=== PATIENT | female | born 1975 | race Caucasian/White ===

== ENCOUNTER 2023-07-20 06:58 | Outpatient (REF) | payer MEDICAID, SELFPAY ==
--- NOTE | ~2023-07-20 | XR_ITS ---
EXAMINATION: XR KNEE, LEFT CLINICAL INFORMATION: Pain in left knee. COMPARISON: None available. TECHNIQUE: AP standing view of bilateral knees as well as lateral and sunrise views of the left knee. FINDINGS: The bones are diffusely demineralized. AP Standing View of the Right Knee: Moderate degenerative changes in the medial compartment of the right knee with medial joint space narrowing and medial marginal osteophytes. Left Knee: Small tricompartmental osteophytes. Moderate joint effusion. Moderate narrowing of the medial compartment. Asymmetric lateral narrowing of the patellofemoral compartment. Corticated ossicles along the superolateral aspect of the patellofemoral joint. XR/XR knee LT 3V IMPRESSION: Moderate degenerative changes bilateral knees.
== END 2023-07-20 06:59 | disposition home or self-care (01) ==
LOC: HO.HOSX 06:58
PROVIDERS: Visit Provider Physician Assistant
DX: M17.12 Unilateral primary osteoarthritis, left knee (principal); G89.29 Other chronic pain
CPT/HCPCS: 20610; 73562; 99212; J1010

== ENCOUNTER 2023-07-20 12:42 | Outpatient (AMB) | payer MEDICAID, SELFPAY ==
--- NOTE | 2023-07-20 13:09 | A.OFFVIS_ITS ---
Intake Visit Reasons: N/P Left knee s/p falling on 03/24/23 Intake Note: Yomaira a 47 year old female who presents today as a new patient for an evaluation of left knee pain s/p fall on 03/24/23. Patient reports bilateral knee pain after sustaining a fall, states her left knee being the worse. Intermittent swelling at the medial aspect of knee. Her pain radiates from her knee to her lower back as well as numbness in her knee. She has tried and failed PT. Finds no relief with Tylenol or topical cream. Allergies No Known Allergies Allergy (Verified 07/20/23 13:13) Medication List - Last Reconciled 07/20/23 by BRIDGETT Diamond diclofenac sodium 1% 2 grams topical BID losartan 50 mg PO DAILY HPI HPI N/P Left knee s/p falling on 03/24/23: Details: 47-year-old female who presents to the office today for an evaluation of left knee injury s/p fall, 03/24/23. She states she has bilateral knee pain that is worse on her left knee. Her pain radiates from her knee to the lower back. She also reports intermittent swelling at the medial aspect of her knee as well as numbness and tingling. She has tried physical therapy without benefits. She finds no relief with Tylenol or topical cream. She does not have a history of diabetes. 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 Review of Systems Const All systems reviewed & are unremarkable except as noted in HPI and below Physical Exam Const Other: Patient is alert, oriented, cooperative, and in no acute distress General: cooperative, healthy appearing, comfortable, no acute distress, well developed and alert Orientation/consciousness: patient oriented x3 HEENT Head: Yes normal to inspection, Yes normocephalic and Yes atraumatic Eyes General: appearance normal, both eyes and all related structures Resp Effort & Inspection: normal respiratory effort and able to speak in complete sentences Cardio Jugular venous distension: no JVD Rate: regular rate Peripheral pulses: Peripheral pulses 2+ throughout GI Palpation (GI): Soft to palpation Skin Lesions: no lesions Rashes: no rashes Neuro General: patient oriented x3 Cognition (Neuro): normal cognition Extrem Other: Patient's left knee normal to inspection. No erythema, ecchymosis, or superficial wounds noted. Hypersensitivity to palpation of the anterior, posterior, and medial knee. Patient reports less tenderness to palpation of the lateral knee. Pain with active and passive range of motion. Medial and lateral joint line tenderness noted. NVI. Psych Appearance: grossly normal Mental Status: mental status grossly normal Office Procedures Joint Injection/Drain Joint Injection/Drain Primary Site: left knee Prep: site was prepped using aseptic technique, ethochloride spray was applied and injection warnings given Injected: 80 mg of, DepoMedrol, with 8 mL of and 1% plain lidocaine Approach Used: anterolateral Procedure: The patient tolerated the procedure well and there was some relief with the local anesthesia Coding 58632 - Large joint Procedure code (CPT) selection complete Results Reviewed Results Reviewed: X-rays obtained in the office today and independently reviewed by me, David Moya PA-C, demonstrate mild to moderate patellofemoral arthritis in the left knee, significant lateralization of the patella, mild medial joint space narrowing in the left knee, and osteophyte formation. Assessment & Plan Assessment & Plan (1) Left knee pain: Code(s): M25.562 - Pain in left knee Category: Medical Qualifiers: Chronicity: chronic Qualified Code(s): M25.562 - Pain in left knee; G89.29 - Other chronic pain (2) Patellofemoral arthritis of left knee: Code(s): M17.12 - Unilateral primary osteoarthritis, left knee Category: Medical Plan Patient was given an injection with 80 mg of Depo-Medrol and 8 mL of 1% lidocaine in her left knee. Patient was also advised to continue with physical therapy to improve function in her left knee. Patient expresses interest in having an MRI taken of her left knee to assess for any further derangement. MRI ordered and the patient will be called to schedule this. Patient will follow-up with us in office once MRI has been obtained to review results. In the meantime, patient can follow up in the office PRN. Orders: Orders XR knee LT 3V Today M25.562 - Pain in left knee MR knee LT wo con Today M17.12 - Unilateral primary osteoarthritis, left knee Coding Level of Care Code New Pt Level 3 (15535) Diagnoses Chronic pain of left knee M25.562; G89.29 Chronicity: chronic Patellofemoral arthritis of left knee M17.12 CPT Codes Coding - 79293 Large joint: 80177 - Large joint ([id number]) Time Spent (min) 38
== END 2023-07-20 14:39 | disposition home or self-care (01) ==
PROVIDERS: Visit Provider Physician Assistant
DX: M25.562 Pain in left knee (principal); G89.29 Other chronic pain; M17.12 Unilateral primary osteoarthritis, left knee
CPT/HCPCS: 20610; 99203

== ENCOUNTER 2023-09-12 19:14 | Outpatient (REF) | payer MEDICAID, SELFPAY ==
--- NOTE | ~2023-09-12 | MR_ITS ---
EXAMINATION: MR KNEE WITHOUT CONTRAST, LEFT CLINICAL INFORMATION: Left knee pain. Unilateral primary osteoarthritis. COMPARISON: Radiographs dated 07/20/2023. TECHNIQUE: MRI of the knee without contrast was performed using routine sequences on a high-field scanner. FINDINGS: MENISCI: Medial Meniscus: There is a small horizontal inner margin tear of the posterior horn, involving the inner third of the meniscal cross-section. No additional tears. No meniscal extrusion. Lateral Meniscus: Intact. LIGAMENTS: Cruciate: Intact. Collateral: Intact. EXTENSOR MECHANISM: Intact. ARTICULAR CARTILAGE/BONE: Patellofemoral Compartment: Diffuse full-thickness articular cartilage loss is evident at the lateral patellar facet extending onto the median ridge with associated articular cortical remodeling, sclerosis, and marginal osteophytes. Similar full-thickness cartilage loss and cortical remodeling are noted at the lateral trochlear facet. More wlkf-zl-qgiqhmah chondral thinning and surface irregularity at the medial facets. A chronic ossific fragment is present at the lateral margin of the patella, likely a fragmented osteophyte. Medial Compartment: Qort-xb-znnveuvb nonuniform chondral thinning at the medial femoral condyle and medial tibial plateau with associated marginal osteophytes. Lateral Compartment: There is mild nonuniform chondral thinning at the lateral tibial plateau with moderate-sized marginal osteophytes. JOINT FLUID AND BURSAE: Moderate-sized joint effusion. Small Sosa's cysts. No loose bodies. MR/MR knee LT wo con IMPRESSION: 1. Small horizontal inner margin tear at the posterior horn of the medial meniscus. 2. Severe patellofemoral compartment osteoarthritis more pronounced at the lateral facets. More zvvo-sf-dlkegdon medial and lateral compartment osteoarthritis. 3. Moderate-sized joint effusion and a small Sosa's cyst.
== END 2023-09-12 19:15 | disposition home or self-care (01) ==
LOC: HO.MRI 19:14
PROVIDERS: Visit Provider Physician Assistant
DX: M17.12 Unilateral primary osteoarthritis, left knee (principal)
CPT/HCPCS: 73721

== ENCOUNTER 2023-10-14 15:13 | Outpatient (AMB) | payer MEDICAID, SELFPAY ==
--- NOTE | 2023-10-14 15:18 | MHC.OFFVIS ---
Intake Visit Reasons: OV- MRI review Left knee Intake Note: Yomaira is a 48 year old female who presents today to discuss her MRI results of her left knee. Patient reports her pain has gradually increased. PT did not help her w/ relief, they are saying she need surgery. Prologned ambulation, sitting and standing causing extreme pain. Her injection on 07/20/23 did not give relief. 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 Topical gel does not give relief. She says she is unable to take ibuprofen. Clearance Representative Required: Yes Clearance Representative Language: Body Man Services: Clearance Representative Present Clearance Representative Name: ALEX Alcala/NARAYAN Allergies ibuprofen Allergy (Severe, Verified 10/14/23 16:07) trouble breathing HPI HPI OV- MRI review Left knee: Details: 48-year-old female who returns to the office today with an opto mechanical technician for an MRI review left knee. She reports she has worsening pain in her knee that is aggravated with prolonged ambulation, sitting and standing. She had attended physical therapy which did not provide her any relief. She had her last injection on 07/19/22 which did not provide her any relief. She finds no relief with topical gel. She is unable to take ibuprofen. 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 Review of Systems Const All systems reviewed & are unremarkable except as noted in HPI and below Physical Exam Const Other: Patient is alert, oriented, cooperative, and in no acute distress General: cooperative, healthy appearing, comfortable, no acute distress, well developed and alert Orientation/consciousness: patient oriented x3 HEENT Head: Yes normal to inspection, Yes normocephalic and Yes atraumatic Eyes General: appearance normal, both eyes and all related structures Resp Effort & Inspection: normal respiratory effort and able to speak in complete sentences Cardio Jugular venous distension: no JVD Rate: regular rate Peripheral pulses: Peripheral pulses 2+ throughout GI Palpation (GI): Soft to palpation Skin Lesions: no lesions Rashes: no rashes Neuro General: patient oriented x3 Cognition (Neuro): normal cognition Extrem Other: Patient's left knee normal to inspection. No erythema, ecchymosis, or superficial wounds noted. Hypersensitivity to palpation of the anterior, posterior, and medial knee. Patient reports less tenderness to palpation of the lateral knee. Pain with active and passive range of motion. Medial and lateral joint line tenderness noted. NVI. Psych Appearance: grossly normal Mental Status: mental status grossly normal Results Reviewed Results Reviewed: MR knee LT wo con IMPRESSION: 1. Small horizontal inner margin tear at the posterior horn of the medial meniscus. 2. Severe patellofemoral compartment osteoarthritis more pronounced at the lateral facets. More dorm-me-hzootrgl medial and lateral compartment osteoarthritis. 3. Moderate-sized joint effusion and a small Sosa's cyst. Assessment & Plan Assessment & Plan (1) Patellofemoral arthritis of left knee: Code(s): M17.12 - Unilateral primary osteoarthritis, left knee Category: Medical Plan A referral to pain management has been submitted to discuss geniculate injection. We will also get a prior approval for gel injection and will see her back once approved. Orders: Referrals Pain Management Referral M17.12 - Unilateral primary osteoarthritis, left knee Medications: New celecoxib (Celebrex) 200 mg PO BID 60 caps 3RF 30 days Patient Instructions: Scribed for Usman Nichols PA-C, by Cyrus Kirk outside medical sales representative, on 10/14/2023 at 3:15 PM EST.? I, Usman Nichols PA-C, have personally reviewed and agree with the information entered by the scribe. Coding Level of Care Code Est Pt Level 3 (97617) Complex EM visit Add On G2211 Diagnoses Patellofemoral arthritis of left knee M17.12
== END 2023-10-14 16:07 | disposition home or self-care (01) ==
PROVIDERS: Visit Provider Physician Assistant
DX: M17.12 Unilateral primary osteoarthritis, left knee (principal)
CPT/HCPCS: 99213

== ENCOUNTER → 2023-10-14 15:13 | Outpatient (BNVA) | payer MEDICAID, SELFPAY | PROVIDERS: Visit Provider Physician Assistant | DX: M17.12 Unilateral primary osteoarthritis, left knee (principal) | CPT/HCPCS: 99212 ==

== ENCOUNTER 2023-12-15 10:58 | Outpatient (AMB) | payer MEDICAID, SELFPAY ==
[2023-12-15 11:17] VITALS: BP 157/90; PULSE 76; O2SAT 98
--- NOTE | 2023-12-15 11:17 | A.OFFVIS_ITS ---
Vital Signs 12/15/23 11:17 Weight 200 lb BP 157/90 H Blood Pressure Location Lt brachial Position Sitting Pulse 76 Pulse Source Pulse Oximeter Pulse Oximetry (%) 98 Oxygen Delivery Method Room Air Intake Visit Reasons: Unilateral primary osteoarthritis, left knee Allergies ibuprofen Allergy (Severe, Verified 12/15/23 11:18) trouble breathing Medication List - Last Reconciled 12/15/23 by Evette Salgado celecoxib (Celebrex) 200 mg PO BID 30 days losartan 50 mg PO DAILY HPI Comments Details: Yomaira is a very pleasant 40-year-old female who presents to the office today for evaluation and management of her chronic left knee pain Visit completed with water resource project manager Sonny #[id number] Pain started 03/29/2023 after she fell at the grocery store. States she landed on her left knee. Has been under the care of Orthopedics, x-ray and MRI performed, results as per below. Has received steroid knee injections without improvement of her symptoms Taking Celebrex with no improvement. Using bgdv-fnm-lvudjnd Tylenol at home. Completed physical therapy less than 6 months ago but pain persists. States there was no improvement with physical therapy or with the continued home exercise program. Endorses decreased range of motion, pain with standing and walking. States significantly tender to palpation Pain today is rated as a 10/10, constant. 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 Answers questions appropriately. Fully engaged in examination. Skin: warm, dry, intact HEENT: Normocephalic. Hearing intact. Cardiac: External chest normal in appearance. Respiratory: No cough, audible wheezing or stridor. Abdomen: without gross distension. MS: No obvious swelling or deformities. Left knee: Diffusely tender. Decreased range of motion. Patient is weight- bearing and ambulates with steady gait unassisted. Neurological: Oriented to person, place, time and situation. Thought process intact. No gait abnormalities appreciated. Psychiatric: Appropriate mood and affect. Good judgment and insight. Results Reviewed Results Reviewed: 09/12/2023 MR/MR knee LT wo con FINDINGS: MENISCI: Medial Meniscus: There is a small horizontal inner margin tear of the posterior horn, involving the inner third of the meniscal cross-section. No additional tears. No meniscal extrusion. Lateral Meniscus: Intact. LIGAMENTS: Cruciate: Intact. Collateral: Intact. EXTENSOR MECHANISM: Intact. ARTICULAR CARTILAGE/BONE: Patellofemoral Compartment: Diffuse full-thickness articular cartilage loss is evident at the lateral patellar facet extending onto the median ridge with associated articular cortical remodeling, sclerosis, and marginal osteophytes. Similar full-thickness cartilage loss and cortical remodeling are noted at the lateral trochlear facet. More pjzd-mx-gqysmlcj chondral thinning and surface irregularity at the medial facets. A chronic ossific fragment is present at the lateral margin of the patella, likely a fragmented osteophyte. Medial Compartment: Hkjp-dr-xzivuhgd nonuniform chondral thinning at the medial femoral condyle and medial tibial plateau with associated marginal osteophytes. Lateral Compartment: There is mild nonuniform chondral thinning at the lateral tibial plateau with moderate-sized marginal osteophytes. JOINT FLUID AND BURSAE: Moderate-sized joint effusion. Small Sosa's cysts. No loose bodies. IMPRESSION: 1. Small horizontal inner margin tear at the posterior horn of the medial meniscus. 2. Severe patellofemoral compartment osteoarthritis more pronounced at the lateral facets. More dplb-hp-ctphbpmc medial and lateral compartment osteoarthritis. 3. Moderate-sized joint effusion and a small Sosa's cyst. 07/20/23 XR/XR knee LT 3V FINDINGS: The bones are diffusely demineralized. AP Standing View of the Right Knee: Moderate degenerative changes in the medial compartment of the right knee with medial joint space narrowing and medial marginal osteophytes. Left Knee: Small tricompartmental osteophytes. Moderate joint effusion. Moderate narrowing of the medial compartment. Asymmetric lateral narrowing of the patellofemoral compartment. Corticated ossicles along the superolateral aspect of the patellofemoral joint. IMPRESSION: Moderate degenerative changes bilateral knees. Assessment & Plan Assessment & Plan (1) Patellofemoral arthritis of left knee: Code(s): M17.12 - Unilateral primary osteoarthritis, left knee Category: Medical (2) Left knee pain: Code(s): M25.562 - Pain in left knee Category: Medical Qualifiers: Chronicity: chronic Qualified Code(s): M25.562 - Pain in left knee; G89.29 - Other chronic pain Plan Yomaira is a very pleasant 40-year-old female who presented to the office today for evaluation and management of her chronic left knee pain Patient has exhausted conservative therapy including PT, home exercise program, nonsteroidal anti-inflammatory medications, pvog-dwn-uklsiux medications and steroid injections all without improvement of her symptoms Continue with plan for Euflexxa injections with Orthopedics. Discussed options for treatment including diagnostic interventional testing, steroid injections, peripheral nerve stimulation with Sprint, RFA and more permanent neuromodulation. Informational pamphlets provided. Patient will follow-up after gentle injections, if no improvement will plan for fluoroscopy guided left saphenous nerve sprint PNS trial with local anesthetic. All questions and concerns have been answered and patient agrees with the plan. Follow up after injections and sooner if needed. Medications: New gabapentin 100 mg PO TID 90 caps 3RF Coding Level of Care Code New Pt Level 4 (77627) Complex EM visit Add On G2211 Diagnoses Patellofemoral arthritis of left knee M17.12 Chronic pain of left knee M25.562; G89.29 Chronicity: chronic
== END 2023-12-15 11:43 | disposition home or self-care (01) ==
LOC: HO.PMC 10:59
PROVIDERS: Visit Provider Registered Nurse Emergency
DX: M17.12 Unilateral primary osteoarthritis, left knee (principal); M25.562 Pain in left knee; G89.29 Other chronic pain
CPT/HCPCS: 99204

== ENCOUNTER → 2023-12-15 10:58 | Outpatient (BNVA) | payer MEDICAID, SELFPAY | PROVIDERS: Visit Provider Registered Nurse Emergency | DX: M17.12 Unilateral primary osteoarthritis, left knee (principal); M25.562 Pain in left knee; G89.29 Other chronic pain | CPT/HCPCS: 99212 ==

== ENCOUNTER 2023-12-23 10:41 | Outpatient (AMB) | payer MEDICAID, SELFPAY ==
--- NOTE | 2023-12-23 10:45 | A.OFFVIS_ITS ---
Intake Visit Reasons: INJ- LT knee Euflexxa #1 Intake Note: Yomaira a 48 year old female who presents today for a left knee Euflexxa injection #1. Allergies ibuprofen Allergy (Severe, Verified 12/23/23 10:53) trouble breathing HPI HPI INJ- LT knee Euflexxa #1: Details: 48-year-old female who returns to the office today for a left knee Euflexxa gel injection #1. 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 Tenderness along the medial and lateral joint line. Full ROM with crepitus. Negative Mirela?s. No ligamentous laxity. NVI. Office Procedures AMB Joint Injection/Aspiration Joint Injection/Aspiration Primary Site: left knee Prep: site was prepped using aseptic technique, ethochloride spray was applied and injection warnings given Injected: in the joint Approach Used: anterolateral Procedure: The patient tolerated the procedure well and there was some relief with the local anesthesia Coding 30617 - Glenohumeral/Tronchanteric Bursa/Intraarticular Procedure code (CPT) selection complete Assessment & Plan Assessment & Plan (1) Patellofemoral arthritis of left knee: Code(s): M17.12 - Unilateral primary osteoarthritis, left knee Category: Medical Plan We discussed options today, which include Euflexxa gel injection. The patient did consent to move forward with the left knee Euflexxa gel injection #1, which was tolerated well. I recommended rest, ice, and elevation and OTC anti- inflammatories as needed for discomfort. she will return in 1 week for Euflexxa gel injection #2. Patient Instructions: Scribed for Usman Nichols PA-C, by Cyrus Kirk medical technologist clinical, on 12/23/2023 at 11:15 AM EST.? I, Usman Nichols PA-C, have personally reviewed and agree with the information entered by the scribe. Coding Level of Care Code Procedure Only Diagnoses Patellofemoral arthritis of left knee M17.12 CPT Codes Coding - Joint 7: 68333 - Glenohumeral/Tronchanteric Bursa/Intraarticular ([id number])
== END 2023-12-23 11:07 | disposition home or self-care (01) ==
PROVIDERS: Visit Provider Physician Assistant
DX: M17.12 Unilateral primary osteoarthritis, left knee (principal)
CPT/HCPCS: 20610

== ENCOUNTER → 2023-12-23 10:41 | Outpatient (BNVA) | payer MEDICAID, SELFPAY | PROVIDERS: Visit Provider Physician Assistant | DX: M17.12 Unilateral primary osteoarthritis, left knee (principal) | CPT/HCPCS: 20610; J7323 ==

== ENCOUNTER 2024-01-09 10:38 | Outpatient (AMB) | payer MEDICAID, SELFPAY ==
--- NOTE | 2024-01-09 11:47 | A.OFFVIS_ITS ---
Intake Visit Reasons: INJ- LT knee Euflexxa #2 Intake Note: Yomaira a 48 year old female who presents today for a LT knee Euflexxa injection #2. 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
--- NOTE | 2024-01-09 11:47 | MHC.OFFVIS ---
Intake Visit Reasons: INJ- LT knee Euflexxa #2 Allergies ibuprofen Allergy (Severe, Verified 01/09/24 11:48) trouble breathing HPI HPI INJ- LT knee Euflexxa #2: Details: 48-year-old female who returns to the office today for a left knee Euflexxa gel injection #2. 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 Tenderness along the medial and lateral joint line. Full ROM with crepitus. Negative Mirela?s. No ligamentous laxity. NVI. Office Procedures AMB Joint Injection/Aspiration Joint Injection/Aspiration Details: #2 euflexxa Primary Site: left knee Prep: site was prepped using aseptic technique, ethochloride spray was applied and injection warnings given Injected: in the joint Approach Used: anterolateral Procedure: The patient tolerated the procedure well and there was some relief with the local anesthesia Coding 82200 - Glenohumeral/Tronchanteric Bursa/Intraarticular Procedure code (CPT) selection complete Assessment & Plan Assessment & Plan (1) Patellofemoral arthritis of left knee: Code(s): M17.12 - Unilateral primary osteoarthritis, left knee Category: Medical Plan We discussed options today, which include Euflexxa gel injection. The patient did consent to move forward with the left knee Euflexxa gel injection #2, which was tolerated well. I recommended rest, ice, and elevation and OTC anti-inflammatories as needed for discomfort. If symptoms persist or worsens over the next 6-8 weeks, patient will contact the office, otherwise she will follow-up in 1 week for Euflexxa gel injection #3. Patient Instructions: Scribed for Usman Nichols PA-C, by Cyrus Kirk biomedical photographer, on 01/09/2024 at 11:30 AM EST.? I, Usman Nichols PA-C, have personally reviewed and agree with the information entered by the scribe. Coding Level of Care Code Procedure Only Diagnoses Patellofemoral arthritis of left knee M17.12 CPT Codes Coding - Joint 7: 99722 - Glenohumeral/Tronchanteric Bursa/Intraarticular ([id number])
== END 2024-01-09 11:48 | disposition home or self-care (01) ==
PROVIDERS: Visit Provider Physician Assistant
DX: M17.12 Unilateral primary osteoarthritis, left knee (principal)
CPT/HCPCS: 20610

== ENCOUNTER → 2024-01-09 10:38 | Outpatient (BNVA) | payer MEDICAID, SELFPAY | PROVIDERS: Visit Provider Physician Assistant | DX: M17.12 Unilateral primary osteoarthritis, left knee (principal) | CPT/HCPCS: 20610; J7323 ==

== ENCOUNTER 2024-01-16 12:49 | Outpatient (AMB) | payer MEDICAID, SELFPAY ==
--- NOTE | 2024-01-16 12:56 | MHC.OFFVIS ---
Vital Signs 01/16/24 12:56 01/16/24 13:09 Weight 200 lb 200 lb Intake Visit Reasons: INJ- LT knee Euflexxa #3 Intake Note: Yomaira 48-year-old female who returns to the office today for a left knee Euflexxa gel injection #3. Patient states she is noticing pain improvement since she starting euflexxa. Reports she is feeling very nervous and is requesting someone to hold her hand. Allergies ibuprofen Allergy (Severe, Verified 01/16/24 13:09) trouble breathing Medication List - Last Reconciled 01/16/24 by Usman Nichols PA-C celecoxib (Celebrex) 200 mg PO BID 30 days gabapentin 100 mg PO TID losartan 50 mg PO DAILY HPI HPI INJ- LT knee Euflexxa #3: Details: 48-year-old female who returns to the office today for a left knee Euflexxa gel injection #3. [facility] Social History Patient Tobacco Use Status: Never used Tobacco Current occupational status: employed Current occupation: [employer] Review of Systems Const All systems reviewed & are unremarkable except as noted in HPI and below Physical Exam Extrem Other: Left knee: Skin intact, no erythema or joint effusion. Tenderness along the medial and lateral joint line. Full ROM with crepitus. Negative Mirela?s. No ligamentous laxity. NVI. Office Procedures AMB Joint Injection/Aspiration Joint Injection/Aspiration Details: #3 euflexxa knee Primary Site: left knee Prep: site was prepped using aseptic technique, ethochloride spray was applied and injection warnings given Injected: in the joint Approach Used: anterolateral Procedure: The patient tolerated the procedure well Coding 83097 - Glenohumeral/Tronchanteric Bursa/Intraarticular Procedure code (CPT) selection complete Assessment & Plan Assessment & Plan (1) Patellofemoral arthritis of left knee: Code(s): M17.12 - Unilateral primary osteoarthritis, left knee Category: Medical Plan We discussed options today, which include Euflexxa gel injection. The patient did consent to move forward with the left knee Euflexxa gel injection #3injection, which was tolerated well. I recommended rest, ice, and elevation and OTC anti-inflammatories as needed for discomfort. If symptoms persist or worsens over the next 6-8 weeks, patient will contact the office, otherwise follow-up as needed. Patient Instructions: Scribed for Usman Nichols PA-C, by Cyrus Kirk medical scientific officer, on 01/16/2024 at 1:15 PM EST.? I, Usman Nichols PA-C, have personally reviewed and agree with the information entered by the scribe. Coding Level of Care Code Procedure Only Diagnoses Patellofemoral arthritis of left knee M17.12 CPT Codes Coding - Joint 7: 64936 - Glenohumeral/Tronchanteric Bursa/Intraarticular ([id number])
== END 2024-01-16 13:29 | disposition home or self-care (01) ==
PROVIDERS: Visit Provider Physician Assistant
DX: M17.12 Unilateral primary osteoarthritis, left knee (principal)
CPT/HCPCS: 20610

== ENCOUNTER → 2024-01-16 12:49 | Outpatient (BNVA) | payer MEDICAID, SELFPAY | PROVIDERS: Visit Provider Physician Assistant | DX: M17.12 Unilateral primary osteoarthritis, left knee (principal) | CPT/HCPCS: 20610; J7323 ==

== ENCOUNTER 2024-06-18 13:33 | Outpatient (AMB) | payer MEDICAID, SELFPAY ==
--- NOTE | 2024-06-18 13:48 | A.OFFVIS_ITS ---
Intake Visit Reasons: OV - Left knee OA, last inj 01/16/24 Intake Note: Yomaira is a 48 year old female who presents today for a follow up of her left knee OA, last Euflexxa gel injection on 01/16/24. Patient reports injection did not provide her with relief, she has ongoing pain and swelling. Stating her pain is now radiating up her leg to her buttocks/lower back area. States she has a cramping sensation in her leg. Allergies ibuprofen Allergy (Severe, Verified 06/18/24 13:58) trouble breathing Medication List - Last Reconciled 06/18/24 by Usman Nichols PA-C celecoxib (Celebrex) 200 mg PO BID 30 days gabapentin 100 mg PO TID losartan 50 mg PO DAILY HPI HPI OV - Left knee OA, last inj 01/16/24: Details: 48 yo female returns to the office today s/p euflexxa injection left knee. She states the pain is still presents and the pain may be worse as it radiates to the buttock region she also c/o tingling which is new since her last appt. She states the tinlging is intermittent. She has seen pain mgmnt who did discuss RFA / geniculate injections . She has yet to see them back since our last appt. 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 Tenderness along the medial and lateral joint line. Full ROM with crepitus. Negative Mirela?s. No ligamentous laxity. NVI. Office Procedures AMB Joint Injection/Aspiration Joint Injection/Aspiration Primary Site: left knee Prep: site was prepped using aseptic technique, ethochloride spray was applied and injection warnings given Injected: 80 mg of, DepoMedrol, with 8 mL of, 1% plain lidocaine and in the joint Approach Used: anterolateral Procedure: The patient tolerated the procedure well and there was some relief with the local anesthesia Coding 36097 - Glenohumeral/Tronchanteric Bursa/Intraarticular Procedure code (CPT) selection complete Assessment & Plan Assessment & Plan (1) Patellofemoral arthritis of left knee: Code(s): M17.12 - Unilateral primary osteoarthritis, left knee Category: Medical Plan We discussed options today which include a repeat steroid injection of the left knee which she would like to proceed with. Patient tolerated left knee steroid injection well. As for the numbness and tingling that goes down her buttock region into the leg I am going to have her see pain management to further evaluate this but to also discuss fluoroscopy guided left saphenous nerve sprint PNS trial with local anesthetic as discussed in previous pain management appointment. Coding Level of Care Code Est Pt Level 3 (12699) Complex EM visit Add On G2211 Diagnoses Patellofemoral arthritis of left knee M17.12 CPT Codes Coding - Joint 7: 56847 - Glenohumeral/Tronchanteric Bursa/Intraarticular ([id number])
--- OUTSIDE RECORDS SUMMARY | 2024-06-18 13:52 | XMS_ITS | Clinical Summary ---
Author Organization [facility] Address [address] [place] [address] Care Team Providers Care Servicer Name Role Phone Ana Lilia Mckee PAID SEARCH MANAGER-C Primary Care Provider [phone] Source Comments PLEASE NOTE, if this patient is a minor, it may be UNLAWFUL to discuss sensitive information that is contained in these records (such as FAMILY PLANNING, MENTAL HEALTH or SUBSTANCE ABUSE) with the minor patient's parent or other person without the patient's specific authorization.[facility] Allergies Active Allergy Reactions Criticality Noted Date Comments Ibuprofen SOB High 06/08/2023 Dyspnea, no anaphylaxis per patient Lisinopril Cough 09/14/2022 Medications loratadine (CLARITIN) 10 mg tabletIndications: Seasonal allergies,Allergy, initial encounter Take 1 Tablet by mouth once daily as needed for allergies 30 Tablet 2 04/15/19 23 Active docusate sodium (COLACE) 100 mg capsuleIndications :Hemorrhoids, unspecified hemorrhoid type,Constipation, chronic Take 1 Capsule by mouth 2 (two) times daily 90 Capsule 1 06/25/19 23 Active busPIRone (BUSPAR) 10 mg tablet Take 10 mg by mouth 2 (two) times daily [id number] [place], [place] [phone] 180 Each Refills RemaininDays Supply: 90Sig: TAKE 1 TABLET BY MOUTH TWICE DAILYSource: Surescripts (Fill History, Ambulatory)Auth orized by: DARBY HOROWITZ 05/10/19 24 Active traZODone (DESYREL) 100 mg tablet Take 100 mg by mouth nightly at bedtime [id number] [place], [place] [phone] 90 Each Refills RemaininDays Supply: 90Sig: TAKE 1 TABLET BY MOUTH EVERY NIGHT AT BEDTIMESource: Surescripts (Fill History, Ambulatory)Auth orized by: DARBY HOROWITZ 05/10/19 24 Active diclofenac sodium (VOLTAREN) 1 % gelIndications:Senthil n in left tibia,Acute traumatic internal derangement of left knee, initial encounter Apply 2 g topically 2 (two) times daily 100 g 2 06/28/19 24 Active fluticasone (FLONASE) 50 mcg/actuation nasal sprayIndications:V iral infection Place 1 [place] in both nostrils once daily 16 g 1 09/28/19 24 Active ondansetron ODT (ZOFRAN-ODT) 4 mg disintegrating tabletIndications: Viral infection Take 1 Tablet by mouth every 8 (eight) hours as needed for nausea 12 Tablet 09/28/19 24 Active acetaminophen (TYLENOL) 325 mg tabletIndications: Viral infection Take 2 Tablets by mouth every 6 (six) hours as needed for pain 60 Tablet 09/28/19 24 Active celecoxib (CELEBREX) 200 mg capsule Take 200 mg by mouth 2 (two) times daily 10/14/19 24 Active nicotine polacrilex (COMMIT) 4 mg lozengeIndications :Tobacco use disorder Dissolve 1 lozenge every 1-2 hours as needed for nicotine cravings (max 10 lozenges per day) 72 Lozenge 2 10/27/19 24 Active blood pressure monitorIndications :Essential hypertension,Class 1 obesity due to excess calories with serious comorbidity and body mass index (BMI) of 32.0 to 32.9 in adult Dispense XL BP CUFF. Check BP daily as needed. Lifetime need. Dx I10.0 1 Kit 10/28/19 24 Active ciclopirox (PENLAC) 8 % solutionIndication s:Toenail fungus Apply topically nightly at bedtime 6.6 mL 11/25/19 24 Active multivitamin tabletIndications: Routine general medical examination at a health care facility Take 1 Tablet by mouth once daily Take 1 tablet by mouth daily. 30 Tablet 2 11/25/19 24 Active escitalopram oxalate (LEXAPRO) 5 mg tablet Take 5 mg by mouth every morning 11/23/19 24 Active blood [facility]Essential hypertension [facility] - [facility] - Checking BP Daily (ID: [id number]) 1 Kit 12/09/19 24 Active losartan (COZAAR) 50 mg tabletIndications: Essential hypertension Take 1 Tablet by mouth every morning 90 Tablet 1 06/07/19 25 Active losartan (COZAAR) 50 mg tabletIndications: Essential hypertension Take 1 Tablet by mouth every morning 90 Tablet 1 10/27/19 24 025 Discontin ued(Reord er (E-Cancel Not Sent)) Active Problems Problem Noted Date Diagnosed Date Class 1 obesity due to exces s calories with serious comorbidity and body mass index (BMI) of 32.0 to 32.9 in adult 06/08/2023 Food insecurity 05/03/2023 Financial difficulties 05/03/2023 Anxiety and depression 06/24/2022 Essential hypertension 06/24/2022 Sleep disturbances 10/02/2019 Vitamin D deficiency 10/02/2019 Anal fissure 04/13/2017 Overview (04/13/2017): [facility] - saw on 08/23/16. Not interested in surgery. Use Nifedipine TID RTC in 6 weeks. Hemorrhoids 04/14/2015 Overview (08/02/2016): 07/29/16 [facility] for constipation and hemorrhoids. KUB shows constipation. Treated with Lactulose 10 mg/15 mL BID PRN constipation x 3 days, Anucort-Hc rectal suppository, Colace 100 mg BID, and Tramadol 50 mg q6h PRN pain #10. Acne vulgaris 06/19/2013 Allergy 06/19/2013 Constipation, chronic 03/26/2013 Overview (02/01/2014): 05/22/13: Brandt Jo MD [facility] did colonoscopy; Entire colon NORMAL 06/08/13: GI ([facility])saw her, said nothing is wrong, enc weight loss. 07/2013: Saw Dr. Kerr EGD normal advised FODMAP diet to minimize bloating. No cause identified, thought to be functional. Cont PPI med for releif. Bx neg for pylori Tobacco use disorder 03/26/2013 Resolved Problems Problem Noted Date Diagnosed Date Resolved Date Tobacco use disorder 06/08/2023 024 Class 1 obesity 10/02/2019 06/28/2023 Visual disturbance 10/02/2019 4 Generalized pruritus 11/29/2018 023 Pelvic pain 01/18/2018 06/24/2022 Overview (01/18/2018): U/s ordered by FIRE INVESTIGATOR done on 01-17-18 showed no bulky exophytic fibroids identified. Recommend clinical correlation with surgical history and follow up. MRI of pelvis may be considered. Endometrial stripe WNL Right shoulder pain 04/14/2015 06/25/19 23 Status post hysteroscopy 09/27/2014 Overview (09/27/2014): Chloe done by Dr. De La Cruz; 09/23/14 Encounters Date Type Department Care Team Description 05/09/2024 3:00 PM EDT Office Visit [facility] [address] [place] [phone] Avery Hoffman, REBA Encounter for dental examination (Primary Dx) from Last 3 Months Immunizations Immunization Administration Dates Next Due HEP A-HEP B ([place]) 07/20/2018 PNEUMOCOCCAL CONJUGATE PCV 2 0 (Prevnar) 06/28/2023(Deferred: Patient Refused) PNEUMOCOCCAL POLYSACCHARIDE PPV23 (Pneumovax 23) 07/20/2018 PPD 11/26/2016,07/08/2015 Pfizer COVID-19 (Comirnaty), Mrna, Lnp-s, Pf, Kiran-sucrose, 30 Mcg/0.3 Ml, 12yr+ 06/28/2023(Deferred: Patient Refused) TDAP 07/20/2018 Family History Medical History Relation Name Comments Cancer Mother breast, mets Relation Name Status Comments Mother Social History Tobacco Use Types Packs/Day Years Used Date Smoking Tobacco: Every Day Cigarettes Smokeless Tobacco: Never Tobacco Cessation:Ready to Q uit: Not Asked; Counseling Given: Not Answered Comments:10 cigarettes Alcohol Use Standard Drinks/Week Comments No 0 (1 standard drink = 0.6 oz pur e alcohol) Social Connections Answer Date Recorded Connectedness 1 09/08/2023 Financial Resource Strain Answer Date R ecorded Financial Resource Strain 2 2023 Stress Answer Date Recorded Stress 1 09/08/2023 Physical Activity Answer Date Recorded Physical Activity 0 09/30/2018 Food Insecurity Answer Date Recorded Food 2 09/08/2023 Transportation Needs Answer Date Record ed Transportation 1 09/08/2023 Housing Stability Answer Date Recorded Housing 1 09/08/2023 Safety and Environment Answer Date Indra rded Safety 1 05/03/2023 Utilities Answer Date Recorded Utilities 1 09/08/2023 Employment Answer Date Recorded Stress 0 04/27/2021 Comments No Sex and Gender Information Value Date Recorded Sex Assigned at Female 11/26/2016 6:36 AM PDT Legal Sex Female 11:36 AM PDT Gender Identity Female 11/26/2016 6:36 AM PDT Sexual Orientation Straight 03/12/2019 12 :41 PM PST Last Filed Vital Signs Vital Sign Reading Time Taken Comments Blood Pressure 145/84 05/09/2024 3:09 PM EDT Pulse 78 05/09/2024 3:09 PM EDT Temperature 36.8 ??C (98.2 ??F) 09/28/2023 1:46 PM ED T Respiratory Rate 16 12/09/2023 3:38 PM EDT Oxygen Saturation 97% 12/09/2023 3:38 PM EDT Inhaled Oxygen Concentration - - Weight 90.7 kg (200 lb) 12/09/2023 3:38 PM EDT Height 167.6 cm (5' 6 ) 12/09/2023 3:38 PM EDT Body Mass Index 32.28 12/09/2023 3:38 PM EDT Plan of Treatment Health Maintenance Due Date Last Done Comments Anxiety Screening 1975 Dental Prophy 1975 HPV Screening 1975 Imm-Hepatitis B (2 of 3 - He p B Twinrix 3-dose series) 08/17/2018 07/20/2018 Imm-Pneumococcal (2 of 2 - PCV) 07/21/[address] Colonography 09/20/2020 Colonoscopy 09/20/2020 Colorectal Cancer Screening 09/20/2020 FIT/gFOBT 09/20/2020 Fecal DNA 09/20/2020 Flexible Sigmoidoscopy 09/20/2020 Breast Cancer Screening (Mammogram) 01/08/2023 07/09/2022, 07/20/2018, 12/23/2016 Depression Monitoring 09/28/2023 06/28/2023 , 02/25/2023, 04/14/2022, Additional history exists [id number]-[id number] ( season) 2023 Alcohol and Drug Screen 02/08/2024 02/25/19 24, 06/02/2022, 04/14/2022, Additional history exists Relationship Safety Screening/Counseling 05/02/2024 05/03/2023, 04/14/2022, 10/02/2019 Annual Preventive Care Visit 06/27/2024, 06/24/2022, 11/29/2016, Additional history exists Tobacco Cessation Counseling (#1) 10/26/2024 06/28/2023, 06/08/2023, 06/24/2022, Additional history exists Pap Smear 07/08/2025 07/08/2022, 09/2014 (Managed by Outside Provider) Lipid Screening 06/27/2026 06/28/2023, 03/0 10/2022, 10/02/2019, Additional history exists Diabetes Screening 11/24/2026 11/25/2023, 1 , 06/28/2023, Additional history exists Cervical Cancer Screening 07/09/2027 Pap + HPV 07/09/2027 07/08/2022 Imm-DTaP/Tdap/Td (2 - Td or Tdap) 07/20/2028 019 Imm-Influenza Discontinued 04/14/2015 Hepatitis C Screening Completed 06/25/2016 HIV Screening Completed 11/25/2023, 07/20/2018 Cervical Ablation/Cold-Knife Conization Discontinued Cervical Cryotherapy Discontinued Colposcopy Discontinued Endometrial Biopsy Discontinued Excision/Leep Discontinued HPV Genotyping Discontinued Vaginal Pap Discontinued Vulvoscopy Discontinued Procedures Procedure Name Priority Date/Time Associated Diagnosis Comments CASE PRESENTATION SUBS DTL & EXTENSIVE TX PLN Routine 05/09/2024 3:00 PM EDT Encounter for dental examination 10 MIFL RESIN-BASED COMPOSITE-4/> SURFACES ANTERIOR Routine 05/09/2024 3:00 PM EDT Encounter for dental examination 10 INTRAORAL - PERIAPICAL FIRST RADIOGRAPHIC IMAGE Routine 05/09/2024 3:00 PM EDT Encounter for dental examination 10 LIMITED ORAL EVALUATION - PROBLEM FOCUSED Routine 05/09/2024 3:00 PM EDT Encounter for dental examination HIV 1/2 AG & AB W/RFLX (4TH GEN) Routine 11/25/2023 1:27 PM EDT Routine screening for STI (sexually transmitted infection) BASIC METABOLIC PANEL CALCIUM TOTAL Routine 11/25/2023 1:27 PM EDT Routine general medical examination at a health care facility Essential hypertension LIPID PANEL Routine 06/28/2023 1:52 PM EDT Routine general medical examination at a health care facility REFERRAL FOR MAMMOGRAM Routine 07/09/2022 3:00 AM EDT Encounter for screening mammogram for malignant neoplasm of breast THIN PREP PAP + HPV RNA E6/E7 (Q) Routine 07/08/2022 3:38 PM EDT Encounter for Papanicolaou smear of vagina as part of routine gynecological examination HEPATITIS A,B,C PANEL Routine 06/25/2016 10:52 AM EDT Routine lab draw from Last 3 Months or Most Recently Relevant to Health Maintenance Results * HIV 1/2 AG & AB W/RFLX (4TH GEN) (11/25/2023 1:27 PM EDT) HIV AG/AB, 4TH GEN NON-REAC TIVE NON-REAC TIVE [facility] Comment: HIV-1 antigen and HIV-1/HIV-2 antibodies were not detected. There is no laboratory evidence of HIV infection. PLEASE NOTE: This information has been disclosed to you from records whose confidentiality may be protected by state law. ??If your state requires such protection, then the state law prohibits you from making any further disclosure of the information without the specific written consent of the person to whom it pertains, or as otherwise permitted by law. A general authorization for the release of medical or other information is NOT sufficient for this purpose. ?? For additional information please refer to http://education.My Digital Life/faq/XQE076 (This link is being provided for informational/ educational purposes only.) The performance of this assay has not been clinically validated in patients less than 2 years old. Blood Blood / Unknown 11/25/2023 1 :27 PM EDT 11/25/2023 1:27 PM EDT Ana Lilia Briggsri PAID SEARCH MANAGER-C LAB - BLOOD DRAW Final Re sult Performing Organization Address [facility] de Phone Number [facility] [address] [address], [place] [address] [address] * BASIC METABOLIC PANEL CALCIUM TOTAL (11/25/2023 1:27 PM EDT) [facility] GLUCOSE 78 65 - 99 mg/dL [facility] Comment: ?Fasting reference interval UREA NITROGEN (BUN) 19 7 - 25 mg/dL [facility] CREATININE (blood) 0.87 0.50 - 0.99 mg/dL [facility] EGFR 82 > OR = 60 mL/min/1. 73m2 [facility] BUN/CREATININE RATIO SEE NOTE: [employer] [facility] Comment: ?? Not Reported: BUN and Creatinine are within ?? reference range. ? SODIUM 142 135 - 146 mmol/L [facility] POTASSIUM 4.1 3.5 - 5.3 mmol/L [facility] CHLORIDE 106 98 - 110 mmol/L [facility] CARBON DIOXIDE 27 20 - 32 mmol/L [facility] CALCIUM 9.5 8.6 - 10.2 mg/dL [facility] Blood Blood / Unknown 11/25/2023 1 :27 PM EDT 11/25/2023 1:27 PM EDT Ana Lilia Douglassikari PAID SEARCH MANAGER-C LAB - BLOOD DRAW Edited R esult - Final Performing Organization Address [facility] de Phone Number [facility] [address] [address], [place] [address] [phone] * (ABNORMAL) LIPID PANEL (06/28/2023 1:52 PM EDT) CHOLESTEROL, TOTAL 157 <200 mg/dL [facility] HDL CHOLESTEROL 55 > OR = 50 mg/dL [facility] TRIGLYCERIDES 152(H) <150 mg/dL [facility] LDL-CHOLESTEROL 77 99 mg/dL (calc) [facility] Comment: Reference range: <100 Desirable range <100 mg/dL for primary prevention; ?? <70 mg/dL for patients with CHD or diabetic patients with > or = 2 CHD risk factors. LDL-C is now calculated using the Maura calculation, which is a validated novel method providing better accuracy than the Friedewald equation in the estimation of LDL-C. Kiran SS et al. MURIEL. 2013;310(19): 1008-3477 (http://education.COMS Interactive/faq/GVB221) CHOL/HDLC RATIO 2.9 <5.0 (calc) [facility] NON-HDL CHOLESTEROL 102 <130 mg/dL (calc) [facility] Comment: For patients with diabetes plus 1 major ASCVD risk factor, treating to a non-HDL-C goal of <100 mg/dL (LDL-C of <70 mg/dL) is considered a therapeutic option. Blood Blood / Unknown 06/28/2023 1 :52 PM EDT 06/28/2023 1:53 PM EDT Narrative [facility] - 07/01/2023 5:40 PM EDT FASTING:NO Ana Lilia Mckee PAID SEARCH MANAGER-C LAB - BLOOD DRAW Final Re sult [facility] [address] [place] [phone], [facility] [place] [facility] [address] [place] [phone] * (ABNORMAL) REFERRAL FOR MAMMOGRAM (07/09/2022 3:00 AM EDT) 07/09/2022 3:00 AM EDT Alberta Pandey PAID SEARCH MANAGER-C IMG RFL MAMMO Edited R esult - Final * THIN PREP PAP + HPV RNA E6/E7 (Q) (07/08/2022 3:38 PM EDT) CLINICAL INFORMATION See Note [facility] Comment:NO PAP SMEAR WITHIN 7 YEARS LMP See Note [facility] Comment:[id number] PREV. PAP See Note [facility] Comment:NONE GIVEN PREV. BX See Note [facility] Comment:NONE GIVEN SOURCE See Note [facility] Comment:Cervix STATEMENT OF ADEQUACY See Note [facility] Comment: Satisfactory for evaluation. Endocervical/transformation zone component present. INTERPRETATION/RESU LT See Note [facility] Comment:Negative for intraep ithelial lesion or malignancy. INFECTION See Note [facility] Comment: Shift in vaginal lisette suggestive of bacterial vaginosis. INVESTMENTS MANAGER See Note [facility] [employer] Comment: DCR, CT(ASCP) CT screening location: [address] ??[id number] COMMENT [facility] HPV MRNA E6/E7 Not Detected Not Detected [facility] Comment: Methodology: Bench Repair Technician-Mediated Amplification This assay detects E6/E7 viral messenger RNA (mRNA) from 14 high-risk HPV types (16,18,31,33,35,39,45,51,52,56,58,59,66,68). Cervical sources are required for HPV testing. If a vaginal source from a patient who has had a total hysterectomy with removal of cervix was submitted, please contact the testing laboratory for alternative testing options. For additional information, please refer to http://education.My Digital Life/faq/KFX439s6 (This link if provided for information/ educational purposes only.) CYTOLOGY Cervix uteri structure / Unknown 07/08/2022 3:38 PM EDT 07/09/2022 5:55 AM EDT Narrative [facility] - 07/13/2022 10:23 AM EDT EXPLANATORY NOTE: The Pap is a screening test for cervical cancer. It is not a diagnostic test and is subject to false negative and false positive results. It is most reliable when a satisfactory sample, regularly obtained, is submitted with relevant clinical findings and history, and when the Pap result is evaluated along with historic and current clinical information. Anthony Avalos MD LAB - NO BLOOD DRAW Final Resul t Performing Organization Address City/[facility]/ZIP Co de Phone Number [facility] [address] [address], [facility] [address] [place] [address] * HEPATITIS A,B,C PANEL (06/25/2016 10:52 AM EDT) HEPATITIS B SURFACE ANTIBODY NEGATIVE NEGATIVE [facility] HEPATITIS B SURFACE ANTIGEN NEGATIVE NEGATIVE [facility] Comment: Over the counter supplements containing high doses of biotin may interfere with this assay. ??If interference is suspected, patients shoud be retested after refraining from biotin supplements for 72 hours. HEPATITIS C VIRUS DIAGNOSTIC NEGATIVE NEGATIVE [facility] HEPATITIS B CORE ANTIBODY NEGATIVE NEGATIVE [facility] HEPATITIS A ANTIBODY TOTAL NEGATIVE NEGATIVE [facility] Comment: Over the counter supplements containing high doses of biotin may interfere with this assay. ??If interference is suspected, patients shoud be retested after refraining from biotin supplements for 72 hours. Blood specimen (specimen) Blood / Unknown 06/25/2016 10:52 AM EDT 06/25/2016 11:[address] [facility] - 06/25/2016 4:05 PM EDT [employer] [address] [place] [id number] [place] [id number] ORD# [id number] Karie Franco MD LAB - BLOOD FLOR W Edited Result - Final [facility] [address] [place] [address], from Last 3 Months or Most Recently Relevant to Health Maintenance Insurance [employer] [place] MED[place] DENTAL [address] [employer] Care Teams Servicer Relationship Specialty Start Date End Date Ana Lilia Mckee FNP-C [address] [place] [address] PCP - General Internal Medicine 11/19/22
--- OUTSIDE RECORDS SUMMARY | 2024-06-18 13:52 | XMS_ITS ---
Author Organization [facility] Address [address] [address] Care Team Providers Care Sink Maker Name Role Phone Ana Lilia Mckee SENIOR INSIGHT MANAGER INTERNATIONAL-C Primary Care Provider [phone] SA[facility] Program Status:Enrolled (Active) Start date:12/09/2023 Enrollment date:12/09/2023 Enrollment reason:Referred by provider Case Team Name Relationship Phone Darell Mace PharmD (Responsible Staff) Continued Care and Services Coordination
--- OUTSIDE RECORDS SUMMARY | 2024-06-18 13:52 | XMS_ITS | Clinical Summary ---
Author Organization [facility] Address [address] [place] [address] Phone Care Team Providers Care Display Associate Name Role Phone Rosy Ayala MD Primary Care Provider Surgical History Surgery Date Site/Laterality Comments MYOMECTOMY 2017 PROCEDURE: VT LAPS MYOMECTOMY EXC 1-4 MYOMAS 250 GM/< Medical History Medical History Date Comments Patient denies medical problems DX:Patient denies medical problems Family History Medical History Relation Name Comments Other cancer Father Other cancer Mother Relation Name Status Comments Father Mother Social History Tobacco Use Types Packs/Day Years Used Date Smoking Tobacco: Some Days Cigarettes Smokeless Tobacco: Never Alcohol Use Standard Drinks/Week Comments No 0 (1 standard drink = 0.6 oz pur e alcohol) Comments Unknown Sex and Gender Information Value Date Recorded Sex Assigned at Not on file Legal Sex Female 1:55 PM EST Gender Identity Not on file Sexual Orientation Not on file Obstetrics History Last Filed Vital Signs Vital Sign Reading Time Taken Comments Blood Pressure 158/93 03/18/2023 8:32 AM EST Pulse 77 03/18/2023 8:32 AM EST Temperature - - Respiratory Rate - - Oxygen Saturation - - Inhaled Oxygen Concentration - - Weight 94.3 kg (208 lb) 03/18/2023 8:32 AM EST Height 160 cm (5' 3 ) 03/18/2023 8:32 AM EST Body Mass Index 36.85 03/18/2023 8:32 AM EST Plan of Treatment Health Maintenance Due Date Last Done Comments Breast Cancer Screening 1975 DTaP,Tdap,and Td Vaccines (1 - Tdap) 09/20/1994 Hepatitis B Vaccines (1 of 3 - 19+ 3-dose series) 09/20/1994 Pneumococcal Vaccine: Pediat rics (0 to 5 Years) and At-Risk Patients (6 to 64 Years) (1 of 2 - PCV) 09/20/1994 Cervical Cancer Screening: P ap Smear 09/20/1996 Colorectal Cancer Screening: Colonoscopy 01/16/2022 Depression Screening 01/16/2022 HIV Screening 01/16/2022 Hepatitis C Screening 01/16/2022 Social Influencers of Health Screening 01/16/2022 COVID-19 Vaccine (2023-2 5 season) 2023 Influenza Vaccine (Season Ended) 2024 HIB Vaccines Aged Out No longer eligi ble based on patient's age to complete this topic HPV Vaccines Aged Out No longer eligi ble based on patient's age to complete this topic Hepatitis A Vaccines Aged Out No long er eligible based on patient's age to complete this topic IPV Vaccines Aged Out No longer eligi ble based on patient's age to complete this topic MMR Vaccines Aged Out No longer eligi ble based on patient's age to complete this topic Meningococcal ACWY Vaccine Aged Out N o longer eligible based on patient's age to complete this topic Meningococcal B Vaccine Aged Out No l onger eligible based on patient's age to complete this topic RSV Immunization Patients Un javier 20 months Aged Out No longer eligible b ased on patient's age to complete this topic Varicella Vaccines Aged Out No longer eligible based on patient's age to complete this topic Care Teams Display Associate Relationship Specialty Start Date End Date Rosy Ayala MD [id number] [address] PCP - General 02/12/10
--- OUTSIDE RECORDS SUMMARY | 2024-06-18 13:52 | XMS_ITS | Encounter Summary ---
Author Organization [facility] Address [address] [place] [address] Care Team Providers Care Special Warfare Boat Operator Name Role Phone Ana Lilia Mckee RETAIL SERVICE SPECIALIST-C Primary Care Provider [phone] Reason for Visit * Reason Comments Dental Hygiene/ Preventive RECALL Encounter Details Date Type Department Care Team ([facility] st Contact Info) Description 09/01/2021 Dental Interim Note [facility] [address] [place] [phone] Kiki Martinez [address] [place] [address] Gingivitis, chronic, plaque induced (Primary Dx) Social History Tobacco Use Types Packs/Day Years Used Date Smoking Tobacco: Every Day Cigarettes Smokeless Tobacco: Never Comments:10 cigarettes Alcohol Use Standard Drinks/Week Comments No 0 (1 standard drink = 0.6 oz pur e alcohol) Social Connections Answer Date Recorded Social Connections and Isolation 0 09/30/2018 Financial Resource Strain Answer Date R ecorded Financial Resource Strain 0 2018 Stress Answer Date Recorded Stress 0 09/30/2018 Physical Activity Answer Date Recorded Physical Activity 0 09/30/2018 Food Insecurity Answer Date Recorded Food 0 09/30/2018 Transportation Needs Answer Date Record ed Transportation 0 09/30/2018 Housing Stability Answer Date Recorded Housing 0 09/30/2018 Safety and Environment Answer Date Indra rded Safety 1 10/02/2019 Utilities Answer Date Recorded Utilities 0 09/30/2018 Employment Answer Date Recorded Stress 0 04/27/2021 Comments No Sex and Gender Information Value Date Recorded Sex Assigned at Female 11/26/2016 6:36 AM PDT Legal Sex Female 11:36 AM PDT Gender Identity Female 11/26/2016 6:36 AM PDT Sexual Orientation Straight 03/12/2019 12 :41 PM PST COVID-19 Exposure Response Date Recorded In the last 10 days, have april u been in contact with someone who was confirmed or suspected to have Coronavirus/COVID-19? No / Unsure 08/19/2021 2:32 PM EDT documented as of this encounter Plan of Treatment Scheduled Orders Name Type Priority Associated Diagnoses Order Schedule Full PROPHYLAXIS - ADULT Dental Procedures Routine 1 Occurrences starting 09/01/2021 Full NUTRITIONAL COUNSELING FOR CONTROL OF DENTAL DISEASE Dental Procedures Routine 1 Occurrences starting 09/01/2021 Full ORAL HYGIENE INSTRUCTIONS Dental Procedures Routine 1 Occurrences starting 09/01/2021 CASE PRESENTATION, DETAILED AND EXTENSIVE TREATMENT PLANNING Dental Procedures Routine 1 Occurrences starting 09/01/2021 BITEWINGS - 4 RADIOGRAPHIC IMAGES Dental Procedures Routine 1 Occurren juan starting 09/01/2021 PERIODIC ORAL EVALUATION - ESTABLISHED PATIENT Dental Procedures Routine 1 Occurren juan starting 09/01/2021 CARIES RISK ASSESSMENT AND DOCUMENTATION, WITH A FINDING OF HIGH RISK Dental Procedures Routine 1 Occurre nces starting 09/01/2021 COMPREHENSIVE PERIODONTAL EVALUATION - NEW OR ESTABLISHED PATIENT Dental Procedures Routine 1 Occurren juan starting 09/01/2021 documented as of this encounter Visit Diagnoses Diagnosis Gingivitis, chronic, plaque induced- Primary Chronic gingivitis, plaque induced documented in this encounter Additional Health Concerns Assessment Noted Time PHQ-9 Depression Total Score: 20 019 2:30 PM PDT documented as of this encounter Care Teams Special Warfare Boat Operator Relationship Specialty Start Date End Date Ana Lilia Mckee FNP-C [facility] [place] [address] PCP - General Internal Medicine 11/19/22 documented as of this encounter
== END 2024-06-18 14:26 | disposition home or self-care (01) ==
LOC: HO.HOS 13:34
PROVIDERS: Visit Provider Physician Assistant
DX: M17.12 Unilateral primary osteoarthritis, left knee (principal)
CPT/HCPCS: 20610; 99213

== ENCOUNTER → 2024-06-18 13:33 | Outpatient (BNVA) | payer MEDICAID, SELFPAY | PROVIDERS: Visit Provider Physician Assistant | DX: M17.12 Unilateral primary osteoarthritis, left knee (principal) | CPT/HCPCS: 20610; 99212; J1010; J2003 ==

== ENCOUNTER 2024-06-20 12:52 | Outpatient (AMB) | payer MEDICAID, SELFPAY ==
--- NOTE | 2024-06-20 13:05 | MHC.OFFVIS ---
Vital Signs 06/20/24 13:06 Height 5 ft 3 in Weight 201 lb BMI 35.6 BP 158/78 H Blood Pressure Location Lt brachial Position Sitting Respiration 16 Pulse 83 Pulse Source Pulse Oximeter Pulse Oximetry (%) 97 Oxygen Delivery Method Room Air Intake Visit Reasons: Procedure Discussion Datastage Developer Required: Yes Datastage Developer Services: Datastage Developer Present Datastage Developer Name: Nurys [id number] Allergies ibuprofen Allergy (Severe, Verified 06/20/24 13:08) trouble breathing Medication List - Last Reconciled 06/20/24 by Arleth Prasad LPN celecoxib (Celebrex) 200 mg PO BID 30 days gabapentin 100 mg PO TID losartan 50 mg PO DAILY HPI Comments Details: Visit completed with spanish interpreter Nurys, #[id number] The patient is a 48-year-old female presenting with chronic left knee pain. The pain originated following a fall and has since worsened. Previous treatments with corticosteroid injections exacerbated the issue, and hyaluronic acid injections did not alleviate the symptoms. The patient reports severe pain on the sides of her knee, with sensations of cracking upon movement, radiating up into the thigh. This pain intensifies at night, adversely affecting sleep and daily functioning. Due to the severity, including difficulty walking, she has been unable to attend work consistently and received a medical recommendation to rest. - Onset and Timing: Began following a fall; pain has intensified over time. - Quality and Character: Severe, crack, crack, crack sensation, described as very, very bad. - Primary Location: Primarily on the sides of the knee and radiating to the thigh. - Areas of Radiation: Pain extends to the thigh. - Exacerbating Factors: Nighttime; certain movements exacerbate the pain. - Relieving Factors: No relief noted from past treatments; not explicitly discussed. - Impact on Activities: Significant impact on sleep and ability to work; patient required to drag affected leg. - Affect: Pain impacts her sleep and work, likely affecting psychological wellbeing. - Analgesia: Ineffectiveness of corticosteroid and hyaluronic acid injections; current pain is severe, and exploratory diagnostic injection is proposed. - Adverse Effects: Worsening of pain following corticosteroid injection. - Activities of Daily Living: Pain limits ability to walk, work, and sleep; major functionality concerns noted. - Aberrant Drug Related Behaviors: Not discussed. Previous :Yomaira is a very pleasant 40-year-old female who presents to the office today for evaluation and management of her chronic left knee pain Visit completed with spanish interpreter Sonny #[id number] Pain started 03/29/2023 after she fell at the grocery store. States she landed on her left knee. Has been under the care of Orthopedics, x-ray and MRI performed, results as per below. Has received steroid knee injections without improvement of her symptoms Taking Celebrex with no improvement. Using cuzj-kkx-tgcdqbi Tylenol at home. Completed physical therapy less than 6 months ago but pain persists. States there was no improvement with physical therapy or with the continued home exercise program. Endorses decreased range of motion, pain with standing and walking. States significantly tender to palpation Pain today is rated as a 10/10, constant. 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 - Neurological: Denies any numbness or tingling beyond mentioned pain radiating to thigh. - General: Reports significant impact on sleep due to pain. Physical Exam Vital Signs: Last Vital Signs Pulse 83 06/20/24 13:06 Resp 16 06/20/24 13:06 BP 158/78 H 06/20/24 13:06 Pulse Ox 97 06/20/24 13:06 Oxygen Delivery Method Room Air 06/20/24 13:06 BMI result Body Mass Index 35.6 General: awake, alert, oriented. Answers questions appropriately. Fully engaged in examination. Skin: warm, dry, intact HEENT: Normocephalic. Hearing intact. Cardiac: External chest normal in appearance. Respiratory: No cough, audible wheezing or stridor. Abdomen: without gross distension. MS: No obvious swelling or deformities. Left knee: Tenderness over medial and lateral joint lines. Decreased range of motion. +Crepitus. Patient is weight-bearing and ambulates with steady gait unassisted. Neurological: Oriented to person, place, time and situation. Thought process intact. No gait abnormalities appreciated. Psychiatric: Appropriate mood and affect. Good judgment and insight. Results Reviewed Results Reviewed: 09/12/2023 MR/MR knee LT wo con FINDINGS: MENISCI: Medial Meniscus: There is a small horizontal inner margin tear of the posterior horn, involving the inner third of the meniscal cross-section. No additional tears. No meniscal extrusion. Lateral Meniscus: Intact. LIGAMENTS: Cruciate: Intact. Collateral: Intact. EXTENSOR MECHANISM: Intact. ARTICULAR CARTILAGE/BONE: Patellofemoral Compartment: Diffuse full-thickness articular cartilage loss is evident at the lateral patellar facet extending onto the median ridge with associated articular cortical remodeling, sclerosis, and marginal osteophytes. Similar full-thickness cartilage loss and cortical remodeling are noted at the lateral trochlear facet. More mmbt-gi-gicisfmd chondral thinning and surface irregularity at the medial facets. A chronic ossific fragment is present at the lateral margin of the patella, likely a fragmented osteophyte. Medial Compartment: Nqtl-wk-fobeqbso nonuniform chondral thinning at the medial femoral condyle and medial tibial plateau with associated marginal osteophytes. Lateral Compartment: There is mild nonuniform chondral thinning at the lateral tibial plateau with moderate-sized marginal osteophytes. JOINT FLUID AND BURSAE: Moderate-sized joint effusion. Small Sosa's cysts. No loose bodies. IMPRESSION: 1. Small horizontal inner margin tear at the posterior horn of the medial meniscus. 2. Severe patellofemoral compartment osteoarthritis more pronounced at the lateral facets. More wcvp-ij-bchbhuhm medial and lateral compartment osteoarthritis. 3. Moderate-sized joint effusion and a small Sosa's cyst. 07/20/23 XR/XR knee LT 3V FINDINGS: The bones are diffusely demineralized. AP Standing View of the Right Knee: Moderate degenerative changes in the medial compartment of the right knee with medial joint space narrowing and medial marginal osteophytes. Left Knee: Small tricompartmental osteophytes. Moderate joint effusion. Moderate narrowing of the medial compartment. Asymmetric lateral narrowing of the patellofemoral compartment. Corticated ossicles along the superolateral aspect of the patellofemoral joint. IMPRESSION: Moderate degenerative changes bilateral knees. Assessment & Plan Assessment & Plan (1) Patellofemoral arthritis of left knee: Code(s): M17.12 - Unilateral primary osteoarthritis, left knee Category: Medical (2) Left knee pain: Code(s): M25.562 - Pain in left knee Category: Medical Qualifiers: Chronicity: chronic Qualified Code(s): M25.562 - Pain in left knee; G89.29 - Other chronic pain Plan I propose a multi-step approach to managing the patient's chronic left knee pain, beginning with a diagnostic nerve block to evaluate the potential benefit from nerve stimulation therapy. If effective, we will consider a temporary neurostimulator trial. The nerve block will provide temporary relief, allowing us to determine the effectiveness of disrupting nerve signaling in alleviating pain. The procedure involves a short, minimal intervention to be conducted at an external unit, with the stimulator remaining external to the skin, targeting the appropriate nerve. I detailed the potential benefits, procedure, associated risks, and arrangements for the process, and the patient agreed. Insurance approval will be sought before scheduling. I discussed with the patient the diagnostic and therapeutic approach involving a nerve block and potential neurostimulator. The diagnostic nerve block, involving only numbing medicine, will help determine if a nerve stimulator would be beneficial. Should insurance approve, the block will be performed at an external unit, with no requirement for hospitalization beyond the procedure day. The risks include temporary limb weakness, for which I advised the patient to have a paintless dent repair technician for transport. Successful relief from the nerve block will lead to an eight-week trial of the neurostimulator for further assessment. Standard discharge and follow-up details were discussed, ensuring comprehension and consent. Will schedule for ultrasound-guided left diagnostic saphenous nerve block with local anesthetic. Patient was informed and verbally consented to the use of an ambient scribe for clinic note documentation during this visit. Patient Instructions: - Await contact for procedure scheduling post-insurance approval. - Arrange for someone to accompany you on the day of the procedure. - Monitor pain levels and keep a pain diary post-procedure to share feedback on relief duration and effectiveness. - Rest as advised, and avoid strenuous activities that aggravate pain. - Contact the office if pain exacerbates or if significant adverse effects arise. Coding Level of Care Code Est Pt Level 3 (28712) Complex EM visit Add On G2211 Diagnoses Patellofemoral arthritis of left knee M17.12 Chronic pain of left knee M25.562; G89.29 Chronicity: chronic
[2024-06-20 13:06] VITALS: BP 158/78; PULSE 83; RESP 16; O2SAT 97; BMI 35.6
--- OUTSIDE RECORDS SUMMARY | 2024-06-20 13:11 | XMS_ITS | Encounter Summary ---
Author Organization [facility] Address [address] [place] [address] Care Team Providers Care Airplane Captain Name Role Phone Ana Lilia Mckee AGILE BUSINESS ANALYST-C Primary Care Provider [phone] Reason for Visit * Reason Comments Dental Hygiene/ Preventive RECALL Encounter Details Date Type Department Care Team ([facility] st Contact Info) Description 09/01/2021 Dental Interim Note [facility] Dental [address] [place] [phone] Kiki Martinez [address] [place] [address] Gingivitis, chronic, plaque induced (Primary Dx) Social [...] ESTABLISHED PATIENT Dental Procedures Routine 1 Occurren juna starting 09/01/2021 documented as of this encounter Visit Diagnoses Diagnosis Gingivitis, chronic, plaque induced- Primary Chronic gingivitis, plaque induced documented in this encounter Additional Health Concerns Assessment Noted Time PHQ-9 Depression Total Score: 20 019 2:30 PM PDT documented as of this encounter Care Teams Airplane Captain Relationship Specialty Start Date End Date Ana Lilia Mckee FNP-C [facility] [place] [address] PCP - General Internal Medicine 11/19/22 documented as of this encounter
--- OUTSIDE RECORDS SUMMARY | 2024-06-20 13:11 | XMS_ITS | Clinical Summary ---
Author Organization [facility] Address [address] [place] [address] Phone Care Team Providers Care Cytometry Technologist Name Role Phone Rosy Ayala MD Primary Care Provider [phone] Surgical History Surgery Date Site/Laterality Comments MYOMECTOMY 2017 PROCEDURE: [place] LAPS MYOMECTOMY EXC 1-4 MYOMAS 250 GM/< [...] age to complete this topic Care Teams Cytometry Technologist Relationship Specialty Start Date End Date Rosy Ayala MD [address] [phone] PCP - General 02/12/10
--- OUTSIDE RECORDS SUMMARY | 2024-06-20 13:11 | XMS_ITS | Clinical Summary ---
Author Organization [facility] Address [address] [place] [address] Care Team Providers Care Lock Assembler Name Role Phone Ana Lilia Mckee EMERGENCY DEPT TECH-C Primary Care Provider [phone] Source Comments PLEASE NOTE, if this patient [...] mg by mouth 2 (two) times daily [id number] [place], [place] [phone] 180 Each Refills RemaininDays Supply: 90Sig: TAKE 1 TABLET BY MOUTH TWICE DAILYSource: Surescripts (Fill History, Ambulatory)Auth orized by: DARBY HOROWITZ 05/10/19 24 Active traZODone (DESYREL) 100 mg tablet Take 100 mg by mouth nightly at bedtime [facility] #[id number] [place], [place] [phone] 90 Each Refills RemaininDays Supply: 90Sig: TAKE [...] mcg/actuation nasal sprayIndications:V iral infection Place 1 Parrott in both nostrils once daily 16 g [...] morning 11/23/19 24 Active blood pressure [facility] ns:Essential hypertension SMBP Program - [facility] - Checking BP Daily (ID: [id number]) 1 Kit 12/09/19 24 Active losartan (COZAAR) [...] 6 weeks. Hemorrhoids 04/14/2015 Overview (08/02/2016): 07/29/16 [facility] ED for constipation and hemorrhoids. KUB shows constipation. Treated with Lactulose 10 mg/15 mL BID PRN constipation x 3 days, Anucort-Hc rectal suppository, Colace 100 mg BID, and Tramadol 50 mg q6h PRN pain #10. Acne vulgaris 06/19/2013 Allergy 06/19/2013 Constipation, chronic 03/26/2013 Overview (02/01/2014): 05/22/13: Brandt Jo MD 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 Recommend clinical correlation with surgical history and follow up. MRI of pelvis may be considered. Endometrial stripe WNL Right shoulder pain 04/14/2015 06/25/19 23 Status post hysteroscopy 09/27/2014 Overview (09/27/2014): Chloe done by Dr. De La Cruz; 09/23/14 Encounters Date Type Department Care Team Description 05/09/2024 3:00 PM EDT Office Visit [facility] [address] [place] [phone] Avery Hoffman, REBA Encounter for dental [...] 06/28/2023 , 02/25/2023, 04/14/2022, Additional history exists [id number] ( season) 2023 Alcohol and Drug Screen [...] AG/AB, 4TH GEN NON-REAC TIVE NON-REAC TIVE [facility] Comment: HIV-1 antigen and HIV-1/HIV-2 antibodies were [...] ?? For additional information please refer to http://education.meXBT / [employer]/faq/QTA070 (This link is being provided for informational/ educational purposes only.) The performance of this assay has not been clinically validated in patients less than 2 years old. Blood Blood / Unknown 11/25/2023 1 :27 PM EDT 11/25/2023 1:27 PM EDT Ana Lilia Briggsri EMERGENCY DEPT TECH-C LAB - BLOOD DRAW Final Re sult Performing Organization Address [facility] de Phone Number [facility] [address] [address], [employer] [address] [address] * BASIC METABOLIC PANEL CALCIUM TOTAL (11/25/2023 1:27 PM EDT) [facility] GLUCOSE 78 65 - 99 mg/dL [facility] Comment: ?Fasting reference interval UREA NITROGEN (BUN) 19 7 - 25 mg/dL [facility] CREATININE (blood) 0.87 0.50 - 0.99 mg/dL [facility] EGFR 82 > OR = 60 mL/min/1. 73m2 [facility] BUN/CREATININE RATIO SEE NOTE: [facility] Comment: ?? Not Reported: BUN and Creatinine are within ?? reference range. ? SODIUM 142 135 - 146 mmol/L [facility] POTASSIUM 4.1 3.5 - 5.3 mmol/L [facility] CHLORIDE 106 98 - 110 mmol/L [facility] CARBON DIOXIDE 27 20 - 32 mmol/L [facility] CALCIUM 9.5 8.6 - 10.2 mg/dL [facility] Blood Blood / Unknown 11/25/2023 1 :27 PM EDT 11/25/2023 1:27 PM EDT Ana Lilia Douglassikari EMERGENCY DEPT TECH-C LAB - BLOOD DRAW Edited R esult - Final Performing Organization Address [facility] de Phone Number [facility] [address] [address], [employer] [address] [address] * (ABNORMAL) LIPID PANEL (06/28/2023 1:52 PM EDT) CHOLESTEROL, TOTAL 157 <200 mg/dL [facility] HDL CHOLESTEROL 55 > OR = 50 mg/dL [facility] TRIGLYCERIDES 152(H) <150 mg/dL [facility] LDL-CHOLESTEROL 77 99 mg/dL (calc) [facility] Comment: Reference range: <100 Desirable range <100 mg/dL for primary prevention; ?? <70 mg/dL for patients with CHD or diabetic patients with > or = 2 CHD risk factors. LDL-C is now calculated using the Maura calculation, which is a validated novel method providing better accuracy than the Friedewald equation in the estimation of LDL-C. Kiran SS et al. MURIEL. 2013;310(19): 9427-2280 (http://education.SealedMedia/faq/DOP973) CHOL/HDLC RATIO 2.9 <5.0 (calc) [facility] NON-HDL CHOLESTEROL 102 <130 mg/dL (calc) [facility] Comment: For patients with diabetes plus 1 major ASCVD risk factor, treating to a non-HDL-C goal of <100 mg/dL (LDL-C of <70 mg/dL) is considered a therapeutic option. Blood Blood / Unknown 06/28/2023 1 :52 PM EDT 06/28/2023 1:53 PM EDT Narrative [facility] - 07/01/2023 5:40 PM EDT FASTING:NO Ana Lilia Mckee EMERGENCY DEPT TECH-C LAB - BLOOD DRAW Final Re sult [facility] [address] [place] [id number], [facility] [place] [facility] [address] [place] [phone] * (ABNORMAL) REFERRAL FOR MAMMOGRAM (07/09/2022 3:00 AM EDT) 07/09/2022 3:00 AM EDT Alberta Pandey EMERGENCY DEPT TECH-C IMG RFL MAMMO Edited R esult - Final * THIN PREP PAP + HPV RNA E6/E7 (Q) (07/08/2022 3:38 PM EDT) CLINICAL INFORMATION See Note [facility] Comment:NO PAP SMEAR WITHIN 7 YEARS LMP See Note [facility] Comment:[id number] PREV. PAP See Note [facility] Comment:NONE GIVEN PREV. BX See Note [facility] Comment:NONE GIVEN SOURCE See Note [facility] Comment:Cervix STATEMENT OF ADEQUACY See Note [facility] Comment: Satisfactory for evaluation. Endocervical/transformation zone component present. INTERPRETATION/RESU LT See Note [facility] Comment:Negative for intraep ithelial lesion or malignancy. INFECTION See Note [facility] Comment: Shift in vaginal lisette suggestive of bacterial vaginosis. 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 Cervical sources are required for HPV testing. If a vaginal source from a patient who has had a total hysterectomy with removal of cervix was submitted, please contact the testing laboratory for alternative testing options. For additional information, please refer to http://education.meXBT / [employer]/faq/BXV313t8 (This link if provided for information/ educational purposes only.) CYTOLOGY Cervix uteri structure / Unknown 07/08/2022 3:38 PM EDT 07/09/2022 5:55 AM EDT Narrative [facility] - 07/13/2022 10:23 AM EDT EXPLANATORY NOTE: [...] DRAW Final Resul t Performing Organization Address City/[facility]/ZIP Co de Phone Number [facility] [address] [address], [facility] [address] [place] [address] * HEPATITIS A,B,C PANEL (06/25/2016 10:52 AM EDT) HEPATITIS B SURFACE ANTIBODY NEGATIVE NEGATIVE [facility] HEPATITIS B SURFACE ANTIGEN NEGATIVE NEGATIVE [facility] Comment: Over the counter supplements containing high doses of biotin may interfere with this assay. ??If interference is suspected, patients shoud be retested after refraining from biotin supplements for 72 hours. HEPATITIS C VIRUS DIAGNOSTIC NEGATIVE NEGATIVE [facility] HEPATITIS B CORE ANTIBODY NEGATIVE NEGATIVE [facility] HEPATITIS A ANTIBODY TOTAL NEGATIVE NEGATIVE [facility] Comment: Over the counter supplements containing high doses of biotin may interfere with this assay. ??If interference is suspected, patients shoud be retested after refraining from biotin supplements for 72 hours. Blood specimen (specimen) Blood / Unknown 06/25/2016 10:52 AM EDT 06/25/2016 11:14 AM EDT [facility] - 06/25/2016 4:05 PM EDT [facility] [address] [place] [id number] PT ID [id number] ORD# [id number] Karie Franco MD LAB - BLOOD FLOR W Edited Result - Final [facility] [address] [place] [address], from Last 3 Months or Most Recently Relevant to Health Maintenance Insurance [employer]AF[employer] [place] D[place] MEDICA[place] DENTAL [address] [facility] Medicaid Address: [facility] [id number] [place] [address] Care Teams Lock Assembler Relationship Specialty Start Date End Date Ana Lilia Mckee FNP-C [address] [place] [address] PCP - General Internal Medicine 11/19/22
--- OUTSIDE RECORDS SUMMARY | 2024-06-20 13:11 | XMS_ITS ---
Author Organization [facility] Address [address] [address] Care Team Providers Care Section Laborer Name Role Phone Ana Lilia Mckee DRAWING BOX TENDER-C Primary Care Provider [phone] [facility] Program Status:Enrolled (Active) Start date:12/09/2023 Enrollment date:12/09/2023 Enrollment reason:Referred by provider Case Team Name Relationship Phone Darell Mace PharmD (Responsible Staff) Continued Care and Services Coordination
== END 2024-06-20 13:25 | disposition home or self-care (01) ==
LOC: HO.PMC 12:53
PROVIDERS: Visit Provider Registered Nurse Emergency
DX: M17.12 Unilateral primary osteoarthritis, left knee (principal); M25.562 Pain in left knee; G89.29 Other chronic pain
CPT/HCPCS: 99213

== ENCOUNTER → 2024-06-20 12:52 | Outpatient (BNVA) | payer MEDICAID, SELFPAY | PROVIDERS: Visit Provider Registered Nurse Emergency | DX: M17.12 Unilateral primary osteoarthritis, left knee (principal); M25.562 Pain in left knee; G89.29 Other chronic pain | CPT/HCPCS: 99212 ==

== ENCOUNTER 2024-08-07 06:54 | Outpatient (REF) | payer MEDICAID, SELFPAY ==
--- OUTSIDE RECORDS SUMMARY | 2024-08-07 06:56 | XMS_ITS | Clinical Summary ---
Author Organization [facility] Address [address] [place] [address] Phone Care Team Providers Care Quality Review Trainer Name Role Phone Rosy Ayala MD Primary Care Provider [phone] Allergies Active Allergy Reactions Criticality Noted Date Comments Ibuprofen Shortness of breath High 06/08/2023 Dyspnea, no anaphylaxis per patient Lisinopril Cough 09/13/2022 Medications busPIRone (BUSPAR) 10 mg tablet Take 1 tablet (10 mg total) by mouth at bedtime. Active QUEtiapine (SEROquel) 25 mg tablet Take 1 tablet (25 mg total) by mouth at bedtime. 5 Active losartan (COZAAR) 50 mg tablet Take 1 tablet (50 mg total) by mouth 1 (one) time each day in the morning. 5 Active acetaminophen (TYLENOL) 500 mg tablet Take 2 tablets (1,000 mg total) by mouth every 8 (eight) hours. 30 tablet 5 Active oxyCODONE (ROXICODONE) 5 mg immediate release tablet Take 1 tablet (5 mg total) by mouth every 4 (four) hours if needed for severe pain. Max Daily Amount: 30 mg 12 tablet 5 Active Additional Information Patient not taking.Reported on 07/10/2024 docusate sodium (COLACE) 100 mg capsule Take 1 capsule (100 mg total) by mouth 2 (two) times a day for 10 days. 20 each 07/09/19 25 Active Problems No known active problems Resolved Problems Problem Noted Date Diagnosed Date Resolved Date Acute cholecystitis 06/27/2024 06/29/19 25 Encounters Date Type Department Care Team Description 07/10/2024 3:30 PM EDT Office Visit [address] [address] Anushka Pedroza MD Chronic cholecystitis (Primary Dx) 06/29/[address] [address] Anushka Pedroza MD Forms/questionnaires (FMLA PAPERWORK DROP OFF) 06/28/2024 12:30 PM EDT - 06/28/2024 2:00 PM EDT Surgery [facility] OR [address] [place] [phone] Anushka Pedroza MD CHOLECYSTECTOMY LAPAROSCOPIC 06/28/2024 12:11 PM EDT Anesthesia Event [facility] OR [address] [place] [phone] Edda Lopez MD 06/28/2024 7:16 AM EDT - 06/28/2024 4:51 PM EDT Emergency [facility] OR [address] [place] [phone] Deni Dawn DO Acute cholecystitis (Primary Dx) Discharge Disposition: Home or Self Care from Last 3 Months Surgical History Surgery Date Site/Laterality Comments MYOMECTOMY 2017 PROCEDURE: TX LAPS MYOMECTOMY EXC 1-4 MYOMAS 250 GM/< CHOLECYSTECTOMY Medical History Medical History Date Comments Patient [...] Sign Reading Time Taken Comments Blood Pressure 116/76 07/10/2024 3:12 PM EDT Pulse 73 07/10/2024 3:12 PM EDT Temperature 36.5 C (97.7 F) 07/10/2024 3:12 PM EDT Respiratory Rate 14 06/28/2024 2:38 PM EDT Oxygen Saturation 97% 06/28/2024 2:38 PM EDT Inhaled Oxygen Concentration - - Weight 91.6 kg (202 lb) 07/10/2024 3:12 PM EDT Height 160 cm (5' 3 ) 07/10/2024 3:12 PM EDT Body Mass Index 35.78 07/10/2024 3:12 PM EDT Plan of Treatment Health Maintenance Due Date Last Done Comments Breast Cancer Screening 1975 Cervical Cancer Screening: Pap Smear 09/20/1996 Hepatitis B Vaccines (2 of 3 - Hep B Twinrix 3-dose series) 08/17/2018 07/20/2018 Pneumococcal Vaccine: Pediatrics (0 to 5 Years) and At-Risk Patients (6 to 64 Years) (2 of 2 - PCV) 07/21/2019 07/20/2018 Colorectal Cancer Screening: Colonoscopy 01/16/2022 HIV Screening 01/16/2022 Hepatitis C Screening 01/16/2022 Social Influencers of Health Screening 01/16/2022 COVID-19 Vaccine ( season) 2023 Influenza Vaccine (Season Ended) 2024 Hypertension/CHF/CAD Annual BMP Blood Test 06/27/2025 06/27/2024, 11/25/2023 Depression Screening 07/05/2025 07/05/2024 Cholesterol Screening (Lipid Panel) 06/27/2028 06/28/2023, 06/28/2023, 04/15/2022, Additional history exists DTaP,Tdap,and Td Vaccines (2 - Td or Tdap) 07/20/2028 07/20/2018 Hepatitis A Vaccines Aged Out 07/20/2018 No long er eligible based on patient's age to complete this topic HIB Vaccines Aged Out No longer eligi [...] to complete this topic RSV Immunization Patients Under 20 months Aged Out No longer eligible based on patient's age to complete this topic Varicella Vaccines Aged Out No longer eligible based on patient's age to complete this topic Procedures Procedure Name Priority Date/Time Associated Diagnosis Comments TISSUE EXAM Routine 06/28/2024 1:01 PM EDT Acute cholecystitis TH AN ENDOTRACHEAL(NO CHARGE) Routine 06/28/2024 12:30 PM EDT CHOLECYSTECTOMY LAPAROSCOPIC 06/28/2024 12:12 PM EDT Acute cholecystitis US ABDOMEN LIMITED STAT 06/28/2024 8: 00 AM EDT XR ABDOMEN 1 VIEW STAT 06/27/2024 11: 03 PM EDT [place] URINE CULTURE TUBE STAT 06/28/19 10:56 PM EDT URINALYSIS WITH REFLEX MICROSCOPIC AND CULTURE STAT 06/27/2024 10:56 PM EDT URINALYSIS WITH REFLEX MICROSCOPIC AND CULTURE STAT 06/27/2024 10:56 PM EDT CULTURE URINE STAT 06/27/2024 10:56 PM EDT CBC WITH AUTO DIFFERENTIAL STAT 06/27/2024 10:55 PM EDT LIPASE STAT 06/27/2024 10:55 PM EDT MAGNESIUM STAT 06/27/2024 10:55 PM EDT COMPREHENSIVE METABOLIC PANEL STAT 06/27/2024 10:55 PM EDT CBC AND DIFFERENTIAL STAT 06/27/2024 10:55 PM EDT from Last 3 Months Results * Tissue exam (06/28/2024 1:01 PM EDT) Final Diagnosis A. Gallbladder, cholecystectomy: - Mild acute cholecystitis, chronic cholecystitis, and cholelithiasis. 07/03/2024 9:59 AM EDT [facility] Gross Description A. Gallbladder, : Labeled gallbladder . Received in formalin is a 6.3 x 3.2 x 2.9 cm intact gallbladder, including attached cystic duct with a diameter of 0.3 cm at the margin. No periductal lymph node is identified. The lumen contains 20 cc of yellow-brown bile and a 3.8 cm yellow-brown ovoid cholelith which is focally pink-white adherent to the mucosa. The mucosa is and flattened to bile-stained green and velvety. The wall (muscularis) thickness measures up to 0.2 cm. The serosa is inked donsi, and the adventitial margin is inked green. Rocket Motor Tester sections are submitted in one cassette including gallbladder (fundus, body and neck), duct margin (inked red), and cross section adjacent to duct margin (inked blue), five pieces. LIBRADO 07/03/2024 9:59 AM EDT [facility] Disclaimer Unless otherwise specified, all tissue is 10% NB formalin fixed and paraffin embedded. 07/03/2024 9:59 AM EDT [facility] Tissue Gallbladder structure / Unknown 06/28/2024 1:01 PM EDT 06/28/2024 2:21 PM EDT us Anushka Pedroza MD LAB PATHOLOGY ORDERABLE S Final Result [facility] [address] [place] [address], [place] [phone] * TH AN ENDOTRACHEAL(NO CHARGE) (06/28/2024 12:30 PM EDT) Edda Bird MD - 06/28/2024 12:30 PM EDT Edda Lopez MD 06/28/2024 12:32 PM General Information and Staff Patient location during procedure: OR Anesthesiologist: Edda Lopez MD Performed: anesthesiologist Performed by: Edda Lopez MD Authorized by: Edda Lopez MD Intubation Urgency: elective Final Airway Details Successful airway: ETT Cuffed: yes Successful intubation technique: direct laryngoscopy Facilitating devices/methods: anterior pressure/BURP Blade: Cornejo Blade size: #3 ETT size (mm): 7.5 Cormack-Lehane Classification: grade IIb - view of arytenoids or posterior of glottis only Placement verified by: chest auscultation and capnometry Cuff volume (mL): 7 Measured from: gums ETT to gums (cm): 20 Number of attempts at approach: 1Final airway type: endotracheal airway Indications and Patient Condition Indications for airway management: anesthesia Spontaneous Ventilation: absent Sedation level: Yes Preoxygenated: yes Soft Tissue Damage: No Dentition Unchanged: Yes Mask difficulty assessment: 1 - vent by mask Start Time: 06/28/2024 12:20 PMStop Time: 06/28/2024 12:20 PM Edda Lopez MD ANESTHESIA ORDERABLES Fin al Result * US Abdomen Limited (06/28/2024 8:00 AM EDT) Anatomical Region Laterality Modality Body Ultrasound 06/28/2024 8:36 AM EDT Impressions 06/28/2024 8:40 AM EDT Cholelithiasis with acute cholecystitis suspected. Recommend surgical consultation with HIDA scan as indicated. -------- FINAL REPORT -------- Dictated By: Shay Esposito Dictated Date: 06/28/2024 08:36 ET Assigned Physician: Shay Esposito Reviewed and Electronically Signed By: Shay Esposito Signed Date: 06/28/2024 08:40 ET Workstation ID: [id number] Transcribed By: Self Edit Transcribed Date: 06/28/2024 08:39 ET Narrative 06/28/2024 8:40 AM EDT INDICATION: Right upper quadrant pain FINDINGS: Ultrasound of the right upper quadrant performed. Prior relevant studies: None Pancreas: Visualized portions of the pancreas are within normal limits. Liver: Normal in size, shape and echogenicity. No solid mass or intrahepatic ductal dilatation. Portal vein patent with hepatopedal flow. Gallbladder: Nonmobile calcified stone within the gallbladder measures near 4 cm. Wall thickness adjacent to the liver measures up to 12 mm with mild adjacent fluid versus edema. Sonographic Clark sign cannot be accurately assessed secondary to presence of analgesics. Common bile duct: 7 mm which is enlarged for the patient's age Right kidney: Survey images are within normal limits. 19 mm parapelvic cyst. Ascites: None Procedure Note Shay Esposito MD - 06/28/2024 INDICATION: Right upper quadrant pain FINDINGS: Ultrasound of the right upper quadrant performed. Prior relevant studies: None Pancreas: Visualized portions of the pancreas are within normal limits. Liver: Normal in size, shape and echogenicity. No solid mass orintrahepatic ductal dilatation. Portal vein patent with hepatopedalflow. Gallbladder: Nonmobile calcified stone within the gallbladder measuresnear 4 cm. Wall thickness adjacent to the liver measures up to 12 mm withmild adjacent fluid versus edema. Sonographic Clark sign cannot beaccurately assessed secondary to presence of analgesics. Common bile duct: 7 mm which is enlarged for the patient's age Right kidney: Survey images are within normal limits. 19 mm parapelviccyst. Ascites: None IMPRESSION: Cholelithiasis with acute cholecystitis suspected. Recommend surgicalconsultation with HIDA scan as indicated. -------- FINAL REPORT -------- Dictated By: Shay Esposito Dictated Date: 06/28/2024 08:36 ET Assigned Physician: Shay Esposito Reviewed and Electronically Signed By: Shay Esposito Signed Date: 06/28/2024 08:40 ET Workstation ID: [id number] Transcribed By: Self Edit Transcribed Date: 06/28/2024 08:39 ET us Deni Dawn DO IMG US PROCEDURES Final Res ult * XR Abdomen 1 View (06/27/2024 11:03 PM EDT) Anatomical Region Laterality Modality Body Radiographic Margaret ging 06/28/2024 8:43 AM EDT Impressions 06/28/2024 9:10 AM EDT FINDINGS/IMPRESSION: Nonobstructive bowel gas pattern. Moderate stool throughout the colon. Lung bases and bones are normal. -------- FINAL REPORT -------- Dictated By: VANNA MCDERMOTT Dictated Date: 06/28/2024 08:43 ET Assigned Physician: VANNA MCDERMOTT Reviewed and Electronically Signed By: AVNNA MCDERMOTT Signed Date: 06/28/2024 09:10 ET Workstation ID: [id number] Transcribed By: Self Edit Transcribed Date: 06/28/2024 08:43 ET Narrative 06/28/2024 9:10 AM EDT XR ABDOMEN 1 VIEW INDICATION: Pain TECHNIQUE: XR ABDOMEN 1 VIEW COMPARISON: No priors available. Procedure Note Vanna Mcdermott MD - 06/28/2024 XR ABDOMEN 1 VIEW INDICATION: Pain TECHNIQUE: XR ABDOMEN 1 VIEW COMPARISON: No priors available. IMPRESSION: FINDINGS/IMPRESSION: Nonobstructive bowel gas pattern. Moderate stoolthroughout the colon. Lung bases and bones are normal. -------- FINAL REPORT -------- Dictated By: VANNA MCDERMOTT Dictated Date: 06/28/2024 08:43 ET Assigned Physician: VANNA MCDERMOTT Reviewed and Electronically Signed By: VANNA MCDERMOTT Signed Date: 06/28/2024 09:10 ET Workstation ID: [id number] Transcribed By: Self Edit Transcribed Date: 06/28/2024 08:43 ET us Deni Dawn DO IMG XR PROCEDURES Final Res ult * (ABNORMAL) Urinalysis with reflex microscopic and culture (06/27/2024 10:56 PM EDT) Specific [place] Urine 1.025 1.003 - 1.030 LAB URINALYSIS - AUTOMATED METHOD 06/27/2024 11:20 PM [facility] pH, Urine 6.5 5.0 - 8.0 pH LAB URINALYSIS - AUTOMATED METHOD 06/27/2024 11:20 PM [facility] Leukocytes, Urine Trace(A) Negative LAB URINALYSIS - AUTOMATED METHOD 06/27/2024 11:20 PM [facility] Nitrite, Urine Negative Negative LAB URINALYSIS - AUTOMATED METHOD 06/27/2024 11:20 PM [facility] Protein, Urine Trace <=Trace mg/dL LAB URINALYSIS - AUTOMATED METHOD 06/27/2024 11:20 PM [facility] Glucose, Urine Negative Negative mg/dL LAB URINALYSIS - AUTOMATED METHOD 06/27/2024 11:20 PM [facility] Ketones, Urine Trace(A) Negative mg/dL LAB URINALYSIS - AUTOMATED METHOD 06/27/2024 11:20 PM [facility] Urobilinogen , Urine 1.0 0.2 - 1.0 mg/dL LAB URINALYSIS - AUTOMATED METHOD 06/27/2024 11:20 PM [facility] Bilirubin, Urine Negative Negative LAB URINALYSIS - AUTOMATED METHOD 06/27/2024 11:20 PM [facility] Blood, Urine Moderate(A) Negative LAB URINALYSIS - AUTOMATED METHOD 06/27/2024 11:20 PM [facility] RBC, Urine 42.0(H) 0 - 4 /HPF LAB URINALYSIS - AUTOMATED METHOD 06/27/2024 11:20 PM [facility] WBC, Urine 6.8(H) 0 - 4 /HPF LAB URINALYSIS - AUTOMATED METHOD 06/27/2024 11:20 PM [facility] Squamous Epithelial, Urine >100(H) 0 - 60 /LPF LAB URINALYSIS - AUTOMATED METHOD 06/27/2024 11:20 PM EDT [facility] Bacteria, Urine Negative Negative /HPF LAB URINALYSIS - AUTOMATED METHOD 06/27/2024 11:20 PM EDT [facility] Hyaline Casts, Urine 1.2 0 - 3 /LPF LAB URINALYSIS - AUTOMATED METHOD 06/27/2024 11:20 PM EDT [facility] Urine Urine specimen obtained by clean catch procedure / Unknown Non-blood Collection / Unknown 06/27/2024 10:56 PM EDT 06/27/2024 11:03 PM EDT Deni Dawn LAB URINE ORDERABLES Final Result Performing Organization Address City/[facility]/ZIP Co de Phone Number [facility] [address] [place] [address], [place] [phone] * [place] urine culture tube (06/27/2024 10:56 PM EDT) Extra Tube Hold for add-ons. 06/28/2024 1:01 AM EDT [facility] Comment:Auto resulted. Urine Urine specimen obtained by clean catch procedure / Unknown Non-blood Collection / Unknown 06/27/2024 10:56 PM EDT 06/27/2024 11:03 PM EDT Deni Dawn DO LAB URINE ORDERABLES Final Result [facility] [address] [place] [address], [place] [phone] * Culture urine (06/27/2024 10:56 PM EDT) Culture, Urine No growth 06/29/2024 10:52 AM EDT [facility] Urine Urine specimen obtained by clean catch procedure / Unknown Non-blood Collection / Unknown 06/27/2024 10:56 PM EDT 06/27/2024 11:20 PM EDT Deni Dawn DO LAB MICROBIOLOGY - GENERAL ORDERABLES Final Result [facility] [address] [place] [address], * (ABNORMAL) CBC auto differential (06/27/2024 10:55 PM EDT) WBC 14.5(H) 4.8 - 10.8 K/mcL LAB HEMETOLOGY METHOD 06/27/2024 11:18 PM EDT [facility] RBC 4.50 3.80 - 4.80 M/mcL LAB HEMETOLOGY METHOD 06/27/2024 11:18 PM EDT [facility] Hemoglobin 14.0 11.5 - 16.0 g/dL LAB HEMETOLOGY METHOD 06/27/2024 11:18 PM EDT [facility] Hematocrit 43.6 35.0 - 47.0 % LAB HEMETOLOGY METHOD 06/27/2024 11:18 PM EDT [facility] MCV 97.3 79.0 - 98.0 FL LAB HEMETOLOGY METHOD 06/27/2024 11:18 PM EDT [facility] MCH 31.3 27.0 - 32.0 pcg LAB HEMETOLOGY METHOD 06/27/2024 11:18 PM EDT [facility] MCHC 32.1 32.0 - 37.0 g/dL LAB HEMETOLOGY METHOD 06/27/2024 11:18 PM EDT [facility] RDW 12.9 11.0 - 15.0 % LAB HEMETOLOGY METHOD 06/27/2024 11:18 PM EDT [facility] Platelets 311 130 - 400 K/mcL LAB HEMETOLOGY METHOD 06/27/2024 11:18 PM EDT [facility] MPV 11.0 7.0 - 11.0 FL LAB HEMETOLOGY METHOD 06/27/2024 11:[facility] NRBC 0.0 <1.0 % LAB HEMETOLOGY METHOD 06/27/2024 11:18 PM [facility] NRBC Absolute 0.00 <0.10 K/mcL LAB HEMETOLOGY METHOD 06/27/2024 11:18 [facility] Neutrophils Relative 73.7 % LAB HEMETOLOGY METHOD 06/27/2024 11:18 PM EDT [facility] Lymphocytes Relative 19.1 % LAB HEMETOLOGY METHOD 06/27/2024 11:18 PM [facility] Monocytes Relative 5.7 % LAB HEMETOLOGY METHOD 06/27/2024 11:18 PM [facility] Eosinophils Relative 0.4 % LAB HEMETOLOGY METHOD 06/27/2024 11:18 PM [facility] Basophils Relative 0.3 % LAB HEMETOLOGY METHOD 06/27/2024 11:18 PM [facility] Immature Granulocytes Relative 0.8 % LAB HEMETOLOGY METHOD 06/27/2024 11:18 PM [facility] Neutrophils Absolute 10.73(H) 1.50 - 7.00 K/mcL LAB HEMETOLOGY METHOD 06/27/2024 11:18 PM EDT [facility] Lymphocytes Absolute 2.77 1.00 - 5.00 K/mcL LAB HEMETOLOGY METHOD 06/27/2024 11:18 PM [facility] Monocytes Absolute 0.83 0.20 - 1.00 K/mcL LAB HEMETOLOGY METHOD 06/27/2024 11:18 PM [facility] Eosinophils Absolute 0.06 0.00 - 0.50 K/mcL LAB HEMETOLOGY METHOD 06/27/2024 11:18 PM EDT [facility] Basophils Absolute 0.04 0.00 - 0.20 K/[facility] LAB HEMETOLOGY METHOD 06/27/2024 11:18 PM EDT [facility] Immature Granulocytes Absolute 0.11(H) 0.00 - 0.03 K/[facility] LAB HEMETOLOGY METHOD 06/27/2024 11:18 PM EDT [facility] Blood Venous blood specimen / Unknown Venipuncture / Unknown 06/27/2024 10:55 PM EDT 06/27/2024 11:03 PM EDT Deni Dawn LAB BLOOD ORDERABLES Final Result Performing Organization Address [facility]/ZIP Co de Phone Number [facility] [address] [place] [address], [place] [phone] * (ABNORMAL) Magnesium (06/27/2024 10:55 PM EDT) Magnesium 1.8(L) 1.9 - 2.6 mg/dL LAB CHEMISTRY METHOD 06/27/2024 11:41 PM EDT [facility] Blood Venous blood specimen / Unknown Venipuncture / Unknown 06/27/2024 10:55 PM EDT 06/27/2024 11:03 PM EDT Deni Dawn DO LAB BLOOD ORDERABLES Final Result [facility] [address] [place] [address], [place] [phone] * Lipase (06/27/2024 10:55 PM EDT) Lipase 58 13 - 75 unit/L LAB CHEMISTRY METHOD 06/27/2024 11:41 PM EDT [facility] Blood Venous blood specimen / Unknown Venipuncture / Unknown 06/27/2024 10:55 PM EDT 06/27/2024 11:03 PM EDT us Deni Kaley Dawn DO LAB BLOOD ORDERABLES Final Result [facility] [address] [place] [address], [place] [phone] * (ABNORMAL) Comprehensive metabolic panel (06/27/2024 10:55 PM EDT) Sodium 140 133 - 145 mmol/L LAB CHEMISTRY METHOD 06/27/2024 11:41 PM [facility] Potassium 3.6 3.5 - 5.5 mmol/L LAB CHEMISTRY METHOD 06/27/2024 11:41 PM [facility] Chloride 107 96 - 110 mmol/L LAB CHEMISTRY METHOD 06/27/2024 11:41 PM [facility] CO2 28 21 - 32 mmol/L LAB CHEMISTRY METHOD 06/27/2024 11:41 PM [facility] Anion Gap 5 3 - 11 LAB CHEMISTRY METHOD 06/27/2024 11:41 PM [facility] Glucose 122(H) 70 - 100 mg/dL LAB CHEMISTRY METHOD 06/27/2024 11:41 PM [facility] BUN 19 5 - 25 mg/dL LAB CHEMISTRY METHOD 06/27/2024 11:41 PM [facility] Creatinine 0.91 0.50 - 1.10 mg/dL LAB CHEMISTRY METHOD 06/27/2024 11:41 PM [facility] eGFR 78 >=60 mL/min/1. 73m2 LAB CHEMISTRY METHOD 06/27/2024 11:41 PM [facility] Comment:Calculation based on the Chronic Kidney Disease Epidemiology Collaboration (CKD-EPI) equation refit without adjustment for race. BUN/Creatinine Ratio 20.9 LAB CHEMISTRY METHOD 06/27/2024 11:41 PM T [facility] Calcium 8.8 8.5 - 10.5 mg/dL LAB CHEMISTRY METHOD 06/27/2024 11:41 PM [facility] AST (SGOT) 11 10 - 42 unit/L LAB CHEMISTRY METHOD 06/27/2024 11:41 PM [facility] ALT (SGPT) 18 10 - 60 unit/L LAB CHEMISTRY METHOD 06/27/2024 11:41 PM [facility] Alkaline Phosphatase 79 42 - 121 unit/L LAB CHEMISTRY METHOD 06/27/2024 11:41 PM [facility] Total Protein 7.7 6.0 - 8.0 g/dL LAB CHEMISTRY METHOD 06/27/2024 11:41 PM [facility] Albumin 3.6 3.2 - 5.0 g/dL LAB CHEMISTRY METHOD 06/27/2024 11:41 PM [facility] Total Bilirubin 0.3 0.0 - 1.4 mg/dL LAB CHEMISTRY METHOD 06/27/2024 11:41 PM [facility] Blood Venous blood specimen / Unknown Venipuncture / Unknown 06/27/2024 10:55 PM EDT 06/27/2024 11:03 PM EDT Deni Dawn DO LAB BLOOD ORDERABLES Final Result [facility] [address] [place] [address], from Last 3 Months Insurance [place]ICA[place] - [place] Care Teams Quality Review Trainer Relationship Specialty Start Date End Date Rosy Ayala MD [id number] [address] PCP - General 02/12/10
--- OUTSIDE RECORDS SUMMARY | 2024-08-07 06:56 | XMS_ITS ---
Author Organization [facility] Address [address] [address] Care Team Providers Care Mechanical Manufacturing Engineer Name Role Phone Ana Lilia Mckee CERAMIC DESIGNER-C Primary Care Provider [phone] SA[facility] Program Status:Enrolled (Active) Start date:12/09/2023 Enrollment date:12/09/2023 Enrollment reason:Referred by provider Case Team Name Relationship Phone Darell Mace PharmD(Responsible Staff) [phone] Continued Care and Services Coordination
== END 2024-08-07 06:55 | disposition home or self-care (01) ==
LOC: CF 06:54
PROVIDERS: Visit Provider Anesthesiology
DX: M17.12 Unilateral primary osteoarthritis, left knee (principal); G89.29 Other chronic pain
CPT/HCPCS: 64450; J2795

== ENCOUNTER 2024-08-07 14:45 | Outpatient (AMB) | payer MEDICAID, SELFPAY ==
[2024-08-07 15:28] VITALS: BP 120/62; PULSE 85; RESP 18; O2SAT 95
--- NOTE | 2024-08-07 15:28 | MHC.OFFVIS ---
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 The patient came to the injection area and she was positioned supine on the examination stretcher. Informed consent was explained to the patient explaining to the patient risks and benefits of the procedure. Time-out was performed delineating name and date of of the patient, risks and benefits of the procedure, nature of the procedure. The left upper thigh was prepped with ChloraPrep and draped with sterile utility towels. Sterilely draped ultrasound probe was brought onto the field and picture of femoral artery if femoral nerve and saphenous nerve were delineated on the screen. 22 gauge 10 cm echo stim needle was inserted extra anatomically through the skin in in plane fashion. It was advanced to were the saphenous nerve on the live view. Injection of the normal saline was performed delineating spread of the normal saline as the contrast in the vicinity of the saphenous nerve silhouette. After that injection of the 10 cc of the preservative-free ropivacaine 0.5% with frequent aspiration performed in the area. The patient tolerated the procedure well. The needle was withdrawn sterile Band-Aid was applied.. Orders: Orders US guide needle placement 08/07/24 G89.29 - Other chronic pain, M25.562 - Pain in left knee Coding Level of Care Code Procedure Only Diagnoses Patellofemoral arthritis of left knee M17.12 Chronic pain of left knee M25.562; G89.29 Chronicity: chronic
--- OUTSIDE RECORDS SUMMARY | 2024-08-07 15:45 | XMS_ITS ---
Author Organization [facility] Address [address] [address] Care Team Providers Care Metal Pourer Name Role Phone Ana Lilia Mckee ANTITANK ASSAULT GUNNER-C Primary Care Provider [phone] [id number] [facility] Program Status:Enrolled (Active) Start date:12/09/2023 Enrollment date:12/09/2023 Enrollment reason:Referred by provider Case Team Name Relationship Phone Darell Mace PharmD(Responsible Staff) [phone] Continued Care and Services Coordination
--- OUTSIDE RECORDS SUMMARY | 2024-08-07 15:45 | XMS_ITS | Clinical Summary ---
Author Organization [facility] Address [address] [place] [address] Phone Care Team Providers Care Precision Agriculture Technician Name Role Phone Rosy Ayala MD Primary Care Provider [phone] Allergies Active Allergy Reactions Criticality Noted Date [...] Description 07/10/2024 3:30 PM EDT Office Visit [address] [phone] Anushka Pedroza MD Chronic cholecystitis (Primary Dx) 06/29/[address] [phone] Anushka Pedroza MD Forms/questionnaires (FMLA PAPERWORK DROP OFF) 06/28/2024 12:30 PM EDT - 06/28/2024 2:00 PM EDT Surgery [facility] OR [address] [place] [phone] Anushka Pedroza MD CHOLECYSTECTOMY LAPAROSCOPIC 06/28/2024 12:11 PM EDT Anesthesia Event [facility] OR [address] [place] [phone] Edda Lopez MD 06/28/2024 7:16 AM EDT - 06/28/2024 4:51 PM EDT Emergency [facility] OR [address] [place] [phone] Deni Dawn DO Acute cholecystitis (Primary Dx) Discharge Disposition: Home or Self Care from Last 3 Months Surgical History Surgery Date Site/Laterality Comments MYOMECTOMY 2017 PROCEDURE: WI LAPS MYOMECTOMY EXC 1-4 MYOMAS 250 GM/< [...] cholecystitis, and cholelithiasis. 07/03/2024 9:59 AM EDT [facility] Gross Description A. Gallbladder, : [...] to 0.2 cm. The serosa is inked donis, and the adventitial margin is inked green. Staffing Consultant sections are submitted in one cassette including gallbladder (fundus, body and neck), duct margin (inked red), and cross section adjacent to duct margin (inked blue), five pieces. LIBRADO 07/03/2024 9:59 AM EDT [facility] Disclaimer Unless otherwise specified, all tissue is 10% NB formalin fixed and paraffin embedded. 07/03/2024 9:59 AM EDT [facility] Tissue Gallbladder structure / Unknown 06/28/2024 1:01 PM EDT 06/28/2024 2:21 PM EDT us Anushka Pedroza MD LAB PATHOLOGY ORDERABLE S Final Result [facility] [address] [place] [address], [place] [phone] * TH AN ENDOTRACHEAL(NO CHARGE) (06/28/2024 12:30 [...] Signed Date: 06/28/2024 08:40 ET Workstation ID: [id number] Transcribed By: Self Edit Transcribed Date: 06/28/2024 [...] Signed Date: 06/28/2024 08:40 ET Workstation ID: [id number] Transcribed By: Self Edit Transcribed Date: 06/28/2024 [...] Signed Date: 06/28/2024 09:10 ET Workstation ID: [id number] Transcribed By: Self Edit Transcribed Date: 06/28/2024 [...] Signed Date: 06/28/2024 09:10 ET Workstation ID: [id number] Transcribed By: Self Edit Transcribed Date: 06/28/2024 08:43 ET us Deni Dawn DO IMG XR PROCEDURES Final Res ult * (ABNORMAL) Urinalysis with reflex microscopic and culture (06/27/2024 10:56 PM EDT) Specific [place] Urine 1.025 1.003 - 1.030 LAB URINALYSIS - AUTOMATED METHOD 06/27/2024 11:20 PM [facility] pH, Urine 6.5 5.0 - 8.0 pH LAB URINALYSIS - AUTOMATED METHOD 06/27/2024 11:20 PM [facility] Leukocytes, Urine Trace(A) Negative LAB URINALYSIS - AUTOMATED METHOD 06/27/2024 11:20 PM [facility] Nitrite, Urine Negative Negative LAB URINALYSIS - AUTOMATED METHOD 06/27/2024 11:20 PM [facility] Protein, Urine Trace <=Trace mg/dL LAB URINALYSIS - AUTOMATED METHOD 06/27/2024 11:20 PM [facility] Glucose, Urine Negative Negative mg/dL LAB URINALYSIS - AUTOMATED METHOD 06/27/2024 11:20 PM [facility] Ketones, Urine Trace(A) Negative mg/dL LAB URINALYSIS - AUTOMATED METHOD 06/27/2024 11:20 PM [facility] Urobilinogen , Urine 1.0 0.2 - 1.0 mg/dL LAB URINALYSIS - AUTOMATED METHOD 06/27/2024 11:20 PM [facility] Bilirubin, Urine Negative Negative LAB URINALYSIS - AUTOMATED METHOD 06/27/2024 11:20 PM [facility] Blood, Urine Moderate(A) Negative LAB URINALYSIS - AUTOMATED METHOD 06/27/2024 11:20 PM [facility] RBC, Urine 42.0(H) 0 - 4 /HPF LAB URINALYSIS - AUTOMATED METHOD 06/27/2024 11:20 PM [facility] WBC, Urine 6.8(H) 0 - 4 /HPF LAB URINALYSIS - AUTOMATED METHOD 06/27/2024 11:20 PM [facility] Squamous Epithelial, Urine >100(H) 0 - 60 /LPF LAB URINALYSIS - AUTOMATED METHOD 06/27/2024 11:20 PM EDT [facility] Bacteria, Urine Negative Negative /HPF LAB URINALYSIS - AUTOMATED METHOD 06/27/2024 11:20 PM EDT [facility] Hyaline Casts, Urine 1.2 0 - 3 /LPF LAB URINALYSIS - AUTOMATED METHOD 06/27/2024 11:20 PM EDT [facility] Urine Urine specimen obtained by clean catch procedure / Unknown Non-blood Collection / Unknown 06/27/2024 10:56 PM EDT 06/27/2024 11:03 PM EDT Deni Dawn LAB URINE ORDERABLES Final Result Performing Organization Address City/[facility]/ZIP Co de Phone Number [facility] [address] [place] [address], [place] [phone] * [place] urine culture tube (06/27/2024 10:56 PM EDT) Extra Tube Hold for add-ons. 06/28/2024 1:01 AM EDT [facility] Comment:Auto resulted. Urine Urine specimen obtained by clean catch procedure / Unknown Non-blood Collection / Unknown 06/27/2024 10:56 PM EDT 06/27/2024 11:03 PM EDT Deni Dawn DO LAB URINE ORDERABLES Final Result [facility] [address] [place] [address], [place] [phone] * Culture urine (06/27/2024 10:56 PM EDT) Culture, Urine No growth 06/29/2024 10:52 AM EDT [facility] Urine Urine specimen obtained by clean catch procedure / Unknown Non-blood Collection / Unknown 06/27/2024 10:56 PM EDT 06/27/2024 11:20 PM EDT Deni Dawn DO LAB MICROBIOLOGY - GENERAL ORDERABLES Final Result [facility] [address] [place] [address], * (ABNORMAL) CBC auto differential (06/27/2024 10:55 PM EDT) WBC 14.5(H) 4.8 - 10.8 K/mcL LAB HEMETOLOGY METHOD 06/27/2024 11:18 PM EDT [facility] RBC 4.50 3.80 - 4.80 M/mcL LAB HEMETOLOGY METHOD 06/27/2024 11:18 PM EDT [facility] Hemoglobin 14.0 11.5 - 16.0 g/dL LAB HEMETOLOGY METHOD 06/27/2024 11:18 PM EDT [facility] Hematocrit 43.6 35.0 - 47.0 % LAB HEMETOLOGY METHOD 06/27/2024 11:18 PM EDT [facility] MCV 97.3 79.0 - 98.0 FL LAB HEMETOLOGY METHOD 06/27/2024 11:18 PM EDT [facility] MCH 31.3 27.0 - 32.0 pcg LAB HEMETOLOGY METHOD 06/27/2024 11:18 PM EDT [facility] MCHC 32.1 32.0 - 37.0 g/dL LAB HEMETOLOGY METHOD 06/27/2024 11:18 PM EDT [facility] RDW 12.9 11.0 - 15.0 % LAB HEMETOLOGY METHOD 06/27/2024 11:18 PM EDT [facility] Platelets 311 130 - 400 K/mcL LAB HEMETOLOGY METHOD 06/27/2024 11:18 PM EDT [facility] MPV 11.0 7.0 - 11.0 FL LAB HEMETOLOGY METHOD [facility] NR[facility] 0.0 <1.0 % LAB HEMETOLOGY METHOD 06/27/2024 11:18 PM [facility] NRBC Absolute 0.00 <0.10 K/mcL LAB HEMETOLOGY METHOD 06/27[facility]2024 11[facility] Neutrophils Relative 73.7 % LAB HEMETOLOGY METHOD 06/27/2024 11:18 PM EDT [facility] Lymphocytes Relative 19.1 % LAB HEMETOLOGY METHOD 06/27/2024 11:18 PM [facility] Monocytes Relative 5.7 % LAB HEMETOLOGY METHOD 06/27/2024 11:18 PM [facility] Eosinophils Relative 0.4 % LAB HEMETOLOGY METHOD 06/27/2024 11:18 PM [facility] Basophils Relative 0.3 % LAB HEMETOLOGY METHOD 06/27/2024 11:18 PM [facility] Immature Granulocytes Relative 0.8 % LAB HEMETOLOGY METHOD 06/27/2024 11:18 PM [facility] Neutrophils Absolute 10.73(H) 1.50 - 7.00 K/mcL LAB HEMETOLOGY METHOD 06/27/2024 11:18 PM EDT [facility] Lymphocytes Absolute 2.77 1.00 - 5.00 K/mcL LAB HEMETOLOGY METHOD 06/27/2024 11:[facility] Monocytes Absolute 0.83 0.20 - 1.00 K/mcL LAB HEMETOLOGY METHOD 06/27/2024 11:18 PM [facility] Eosinophils Absolute 0.06 0.00 - 0.50 K/mcL LAB HEMETOLOGY METHOD 06/27/2024 11:18 PM EDT [facility] Basophils Absolute 0.04 0.00 - 0.20 K/[facility] HEMETOLOGY METHOD 06/27/2024 11:18 PM EDT [facility] Immature Granulocytes Absolute 0.11(H) 0.00 - 0.03 K/[facility] HEMETOLOGY METHOD 06/27/2024 11:18 PM EDT [facility] Blood Venous blood specimen / Unknown Venipuncture / Unknown 06/27/2024 10:55 PM EDT 06/27/2024 11:03 PM EDT Deni Dawn LAB BLOOD ORDERABLES Final Result Performing Organization Address [facility]/ZIP Co de Phone Number [facility] [address] [place] [address], [place] [phone] * (ABNORMAL) Magnesium (06/27/2024 10:55 PM EDT) Magnesium 1.8(L) 1.9 - 2.6 mg/dL LAB CHEMISTRY METHOD 06/27/2024 11:41 PM EDT [facility] Blood Venous blood specimen / Unknown Venipuncture / Unknown 06/27/2024 10:55 PM EDT 06/27/2024 11:03 PM EDT Deni Dawn DO LAB BLOOD ORDERABLES Final Result [facility] [address] [place] [address], [place] [phone] * Lipase (06/27/2024 10:55 PM EDT) Lipase 58 13 - 75 unit/L LAB CHEMISTRY METHOD 06/27/2024 11:41 PM EDT [facility] Blood Venous blood specimen / Unknown Venipuncture / Unknown 06/27/2024 10:55 PM EDT 06/27/2024 11:03 PM EDT us Deni Kaley Dawn DO LAB BLOOD ORDERABLES Final Result [facility] [address] [place] [address], [place] [phone] * (ABNORMAL) Comprehensive metabolic panel (06/27/2024 10:55 PM EDT) Sodium 140 133 - 145 mmol/L LAB CHEMISTRY METHOD 06/27/2024 11:41 PM [facility] Potassium 3.6 3.5 - 5.5 mmol/L LAB CHEMISTRY METHOD 06/27/2024 11:41 PM [facility] Chloride 107 96 - 110 mmol/L LAB CHEMISTRY METHOD 06/27/2024 11:41 PM [facility] CO2 28 21 - 32 mmol/L LAB CHEMISTRY METHOD 06/27/2024 11:41 PM [facility] Anion Gap 5 3 - 11 LAB CHEMISTRY METHOD 06/27/2024 11:41 PM [facility] Glucose 122(H) 70 - 100 mg/dL LAB CHEMISTRY METHOD 06/27/2024 11:41 PM [facility] BUN 19 5 - 25 mg/dL LAB CHEMISTRY METHOD 06/27/2024 11:41 PM [facility] Creatinine 0.91 0.50 - 1.10 mg/dL LAB CHEMISTRY METHOD 06/27/2024 11:41 PM [facility] eGFR 78 >=60 mL/min/1. 73m2 LAB CHEMISTRY METHOD 06/27/2024 11:41 PM [facility] Comment:Calculation based on the Chronic Kidney Disease Epidemiology Collaboration (CKD-EPI) equation refit without adjustment for race. BUN/Creatinine Ratio 20.9 LAB CHEMISTRY METHOD 06/27/2024 11:41 PM T [facility] Calcium 8.8 8.5 - 10.5 mg/dL LAB CHEMISTRY METHOD 06/27/2024 11:41 PM [facility] AST (SGOT) 11 10 - 42 unit/L LAB CHEMISTRY METHOD 06/27/2024 11:41 PM [facility] ALT (SGPT) 18 10 - 60 unit/L LAB CHEMISTRY METHOD 06/27/2024 11:41 PM [facility] Alkaline Phosphatase 79 42 - 121 unit/L LAB CHEMISTRY METHOD 06/27/2024 11:41 PM [facility] Total Protein 7.7 6.0 - 8.0 g/dL LAB CHEMISTRY METHOD 06/27/2024 11:41 PM [facility] Albumin 3.6 3.2 - 5.0 g/dL LAB CHEMISTRY METHOD 06/27/2024 11:41 PM [facility] Total Bilirubin 0.3 0.0 - 1.4 mg/dL LAB CHEMISTRY METHOD 06/27/2024 11:41 PM [facility] Blood Venous blood specimen / Unknown Venipuncture / Unknown 06/27/2024 10:55 PM EDT 06/27/2024 11:03 PM EDT Deni Dawn DO LAB BLOOD ORDERABLES Final Result [facility] [address] [place] [address], from Last 3 Months Insurance [place]ICA[place] - [place] Care Teams Precision Agriculture Technician Relationship Specialty Start Date End Date Rosy Ayala MD [id number] [address] PCP - General 02/12/10
== END 2024-08-07 15:33 | disposition home or self-care (01) ==
LOC: HO.PMCPRC 14:45
PROVIDERS: Visit Provider Anesthesiology
DX: M17.12 Unilateral primary osteoarthritis, left knee (principal); M25.562 Pain in left knee; G89.29 Other chronic pain
CPT/HCPCS: 64450; 76942

== ENCOUNTER 2024-08-15 13:37 | Outpatient (AMB) | payer MEDICAID, SELFPAY ==
--- NOTE | 2024-08-15 13:40 | A.OFFVIS_ITS ---
Vital Signs 08/15/24 13:41 Height 5 ft 3 in Weight 209 lb BMI 37.0 BP 139/71 Blood Pressure Location Rt brachial Position Sitting Respiration 16 Pulse 98 Pulse Source Pulse Oximeter Pulse Oximetry (%) 99 Oxygen Delivery Method Room Air Intake Visit Reasons: LEFT DIAGNOSTIC SAPHENOUS NERVE BLOCK Communications Project Lead Required: Yes Communications Project Lead Name: Karie Mathis [id number] Accompanied by: Family/Other Allergies ibuprofen Allergy (Severe, Verified 08/15/24 13:43) trouble breathing HPI Comments Details: The patient is a 48-year-old female presenting for follow-up left knee pain. The left knee pain was initially addressed with a diagnostic saphenous nerve block performed on 08/07/2024, which provided temporary relief, reducing pain from 9/10 to a level of 0-2 for 6 hours post-procedure. The procedure was intended to assess the potential benefit of nerve block treatment for her knee pain. Today the patient complains of bilateral lower back pain over PSIS, which she associates with the timing of the knee injection, although the two are not anatomically connected. She describes the pain as radiating from the back to the buttock and down the leg, exacerbated by prolonged walking and stair climbing. She has not undergone recent physical therapy for this condition. - Left knee pain: Temporarily relieved by saphenous nerve block, pain level reduced to 0-2 for a few hours - Sacroiliac joint pain: Radiates from back to buttock and down the leg, worsened by walking and stair climbing - Affect: No specific impact on mood or psychological wellbeing discussed - Analgesia: Temporary relief from saphenous nerve block, no current pain medication regimen discussed - Adverse Effects: No adverse effects from pain management discussed - Activities of Daily Living: Pain affects walking and stair climbing - Aberrant Drug Related Behaviors: No aberrant behaviors discussed [facility] Social History Patient Tobacco Use Status: Never used Tobacco Current occupational status: employed 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 Answers questions appropriately. Fully engaged in examination. Skin: warm, dry, intact HEENT: Normocephalic. Hearing intact. Cardiac: External chest normal in appearance. Respiratory: No cough, audible wheezing or stridor. Abdomen: without gross distension. MS: No obvious swelling or deformities. Bilateral sacroiliac: Gaenslen positive, tenderness over PSIS, thigh thrust positive, SI compression positive SLR negative bilaterally Neurological: Oriented to person, place, time and situation. Thought process intact. No gait abnormalities appreciated. Psychiatric: Appropriate mood and affect. Good judgment and insight. Results Reviewed Results Reviewed: 09/12/2023 MR/MR knee LT wo con FINDINGS: MENISCI: Medial Meniscus: There is a small horizontal inner margin tear of the posterior horn, involving the inner third of the meniscal cross-section. No additional tears. No meniscal extrusion. Lateral Meniscus: Intact. LIGAMENTS: Cruciate: Intact. Collateral: Intact. EXTENSOR MECHANISM: Intact. ARTICULAR CARTILAGE/BONE: Patellofemoral Compartment: Diffuse full-thickness articular cartilage loss is evident at the lateral patellar facet extending onto the median ridge with associated articular cortical remodeling, sclerosis, and marginal osteophytes. Similar full-thickness cartilage loss and cortical remodeling are noted at the lateral trochlear facet. More [id number] chondral thinning and surface irregularity at the medial facets. A chronic ossific fragment is present at the lateral margin of the patella, likely a fragmented osteophyte. Medial Compartment: [id number] nonuniform chondral thinning at the medial femoral condyle and medial tibial plateau with associated marginal osteophytes. Lateral Compartment: There is mild nonuniform chondral thinning at the lateral tibial plateau with moderate-sized marginal osteophytes. JOINT FLUID AND BURSAE: Moderate-sized joint effusion. Small Sosa's cysts. No loose bodies. IMPRESSION: 1. Small horizontal inner margin tear at the posterior horn of the medial meniscus. 2. Severe patellofemoral compartment osteoarthritis more pronounced at the lateral facets. More frzp-ol-wdliskyz medial and lateral compartment osteoarthritis. 3. Moderate-sized joint effusion and a small Sosa's cyst. 07/20/23 XR/XR knee LT 3V FINDINGS: The bones are diffusely demineralized. AP Standing View of the Right Knee: Moderate degenerative changes in the medial compartment of the right knee with medial joint space narrowing and medial marginal osteophytes. Left Knee: Small tricompartmental osteophytes. Moderate joint effusion. Moderate narrowing of the medial compartment. Asymmetric lateral narrowing of the patellofemoral compartment. Corticated ossicles along the superolateral aspect of the patellofemoral joint. IMPRESSION: Moderate degenerative changes bilateral knees. Assessment & Plan Assessment & Plan (1) Patellofemoral arthritis of left knee: Code(s): M17.12 - Unilateral primary osteoarthritis, left knee Category: Medical (2) Left knee pain: Code(s): M25.562 - Pain in left knee Category: Medical Qualifiers: Chronicity: chronic Qualified Code(s): M25.562 - Pain in left knee; G89.29 - Other chronic pain (3) Disorder of both sacroiliac joints: Code(s): M53.3 - Sacrococcygeal disorders, not elsewhere classified Category: Medical Plan The patient will be considered for a stimulator device for her left knee pain, as the diagnostic saphenous nerve block indicated potential benefit from nerve block treatment. She would like to hold off on this at this time. For the sacroiliac joint pain, physical therapy is recommended as the initial step, with potential for sacroiliac joint injections if physical therapy does not provide sufficient relief. X-rays of the sacroiliac joints will be ordered to further evaluate. Patient was informed and verbally consented to the use of an ambient scribe for clinic note documentation during this visit. Orders: Orders XR sacroiliac joint min 3V Today M53.3 - Sacrococcygeal disorders, not elsewhere classified PT Evaluation and Treatment Today M53.3 - Sacrococcygeal disorders, not elsewhere classified Patient Instructions: - Consider the stimulator device for knee pain relief. - Begin physical therapy for sacroiliac joint pain. - Complete x-rays of hips and pelvis as ordered. - Return for follow-up if pain persists or worsens. Coding Level of Care Code Est Pt Level 3 (26213) Complex EM visit Add On G2211 Diagnoses Patellofemoral arthritis of left knee M17.12 Chronic pain of left knee M25.562; G89.29 Chronicity: chronic Disorder of both sacroiliac joints M53.3
[2024-08-15 13:41] VITALS: BP 139/71; PULSE 98; RESP 16; O2SAT 99; BMI 37.0
--- OUTSIDE RECORDS SUMMARY | 2024-08-15 14:26 | XMS_ITS | Clinical Summary ---
Author Organization [facility] Address [address] [place] [address] Phone Care Team Providers Care Mild Disabilities Teacher Name Role Phone Rosy Ayala MD Primary Care Provider [phone] Allergies Active Allergy Reactions Criticality Noted Date [...] Additional Information Patient not taking.Reported on 07/10/2024 Active Problems No known active problems Resolved Problems Problem Noted Date Diagnosed Date Resolved Date Acute cholecystitis 06/27/2024 06/29/19 25 Encounters Date Type Department Care Team Description 07/10/2024 3:30 PM EDT Office Visit [facility] [address] [phone] Anushka Pedroza MD Chronic cholecystitis (Primary Dx) 06/29/2024 Telephone [facility] [address] [phone] Anushka Pedroza MD Forms/questionnaires (FMLA PAPERWORK DROP OFF) 06/28/2024 12:30 PM EDT - 06/28/2024 2:00 PM EDT Surgery [facility] OR [address] [place] [phone] Anushka Pedroza MD CHOLECYSTECTOMY LAPAROSCOPIC 06/28/2024 12:11 PM EDT Anesthesia Event [facility] OR [address] [place] [phone] Edda Lopez MD 06/28/2024 7:16 AM EDT - 06/28/2024 4:51 PM EDT Emergency [facility] OR [address] [place] [phone] Deni Dawn DO Acute cholecystitis (Primary Dx) Discharge Disposition: Home or Self Care from Last 3 Months Surgical History Surgery Date Site/Laterality Comments MYOMECTOMY 2017 PROCEDURE: MI LAPS MYOMECTOMY EXC 1-4 MYOMAS 250 GM/< [...] 5 Years) and At-Risk Patients (6 to 49 Years) (2 of 2 - PCV) 07/21/2019 07/20/2018 Colorectal Cancer Screening: Colonoscopy 01/16/2022 HIV Screening 01/16/2022 Hepatitis C Screening 01/16/2022 Social Influencers of Health Screening 01/16/2022 COVID-19 Vaccine ( season) 2023 Influenza Vaccine (#1) 2024 Hypertension/CHF/CAD Annual BMP Blood Test 06/27/2025 [...] cholecystitis, and cholelithiasis. 07/03/2024 9:59 AM EDT [facility] Gross Description A. Gallbladder, : [...] and the adventitial margin is inked green. Sample Driller sections are submitted in one cassette including gallbladder (fundus, body and neck), duct margin (inked red), and cross section adjacent to duct margin (inked blue), five pieces. LIBRADO 07/03/2024 9:59 AM EDT [facility] Disclaimer Unless otherwise specified, all tissue is 10% NB formalin fixed and paraffin embedded. 07/03/2024 9:59 AM EDT [facility] Tissue Gallbladder structure / Unknown 06/28/2024 1:01 PM EDT 06/28/2024 2:21 PM EDT us Anushka Pedroza MD LAB PATHOLOGY ORDERABLE S Final Result [facility] [address] [place] [address], * TH AN ENDOTRACHEAL(NO CHARGE) (06/28/2024 12:30 PM EDT) Narrative Edda Lopez MD - 06/28/2024 12:30 PM EDT Edda [...] 06/28/2024 12:20 PMStop Time: 06/28/2024 12:20 PM us Edda Lopez MD ANESTHESIA ORDERABLES Fin al [...] Signed Date: 06/28/2024 08:40 ET Workstation ID: [id number] Transcribed By: Self Edit Transcribed Date: 06/28/2024 [...] Signed Date: 06/28/2024 08:40 ET Workstation ID: [id number] Transcribed By: Self Edit Transcribed Date: 06/28/2024 [...] Signed Date: 06/28/2024 09:10 ET Workstation ID: [id number] Transcribed By: Self Edit Transcribed Date: 06/28/2024 [...] Signed Date: 06/28/2024 09:10 ET Workstation ID: [id number] Transcribed By: Self Edit Transcribed Date: 06/28/2024 08:43 ET us Deni Dawn DO IMG XR PROCEDURES Final Res ult * (ABNORMAL) Urinalysis with reflex microscopic and culture (06/27/2024 10:56 PM EDT) Specific [place] Urine 1.025 1.003 - 1.030 LAB URINALYSIS - AUTOMATED METHOD 06/27/2024 11:20 PM EDT [facility] pH, Urine 6.5 5.0 - 8.0 pH LAB URINALYSIS - AUTOMATED METHOD 06/27/2024 11:20 PM [facility] Leukocytes, Urine Trace(A) Negative LAB URINALYSIS - AUTOMATED METHOD 06/27/2024 11:20 PM [facility] Nitrite, Urine Negative Negative LAB URINALYSIS - AUTOMATED METHOD 06/27/2024 11:20 PM [facility] Protein, Urine Trace <=Trace mg/dL LAB URINALYSIS - AUTOMATED METHOD 06/27/2024 11:20 PM [facility] Glucose, Urine Negative Negative mg/dL LAB URINALYSIS - AUTOMATED METHOD 06/27/2024 11:20 PM [facility] Ketones, Urine Trace(A) Negative mg/dL LAB URINALYSIS - AUTOMATED METHOD 06/27/2024 11:20 PM [facility] Urobilinogen , Urine 1.0 0.2 - 1.0 mg/dL LAB URINALYSIS - AUTOMATED METHOD 06/27/2024 11:20 PM [facility] Bilirubin, Urine Negative Negative LAB URINALYSIS - AUTOMATED METHOD 06/27/2024 11:20 PM [facility] Blood, Urine Moderate(A) Negative LAB URINALYSIS - AUTOMATED METHOD 06/27/2024 11:20 PM [facility] RBC, Urine 42.0(H) 0 - 4 /HPF LAB URINALYSIS - AUTOMATED METHOD 06/27/2024 11:20 PM [facility] WBC, Urine 6.8(H) 0 - 4 /HPF LAB URINALYSIS - AUTOMATED METHOD 06/27/2024 11:20 PM [facility] Squamous Epithelial, Urine >100(H) 0 - 60 /LPF LAB URINALYSIS - AUTOMATED METHOD 06/27/2024 11:20 PM [facility] Bacteria, Urine Negative Negative /HPF LAB URINALYSIS - AUTOMATED METHOD 06/27/2024 11:20 PM EDT [facility] Hyaline Casts, Urine 1.2 0 - 3 /LPF LAB URINALYSIS - AUTOMATED METHOD 06/27/2024 11:20 PM EDT [facility] Urine Urine specimen obtained by clean catch procedure / Unknown Non-blood Collection / Unknown 06/27/2024 10:56 PM EDT 06/27/2024 11:03 PM EDT us Deni Dawn DO LAB URINE ORDERABLES Final Result [facility] [address] [place] [address], [place] [phone] * [place] urine culture tube (06/27/2024 10:56 PM EDT) Extra Tube Hold for add-ons. 06/28/2024 1:01 AM EDT [facility] Comment:Auto resulted. Urine Urine specimen obtained by clean catch procedure / Unknown Non-blood Collection / Unknown 06/27/2024 10:56 PM EDT 06/27/2024 11:03 PM EDT us Deni Dawn DO LAB URINE ORDERABLES Final Result [facility] [address] [place] [address], [place] [phone] * Culture urine (06/27/2024 10:56 PM EDT) Culture, Urine No growth 06/29/2024 10:52 AM EDT [facility] Urine Urine specimen obtained by clean catch procedure / Unknown Non-blood Collection / Unknown 06/27/2024 10:56 PM EDT 06/27/2024 11:20 PM EDT us Deni Dawn DO LAB MICROBIOLOGY - GENERAL ORDERABLES Final Result [facility] [address] [place] [address], * (ABNORMAL) CBC auto differential (06/27/2024 10:55 PM EDT) WBC 14.5(H) 4.8 - 10.8 K/mcL LAB HEMETOLOGY METHOD 06/27/2024 11:18 PM EDT [facility] RBC 4.50 3.80 - 4.80 M/mcL LAB HEMETOLOGY METHOD 06/27/2024 11:18 PM EDT [facility] Hemoglobin 14.0 11.5 - 16.0 g/dL LAB HEMETOLOGY METHOD 06/27/2024 11:18 PM EDT [facility] Hematocrit 43.6 35.0 - 47.0 % LAB HEMETOLOGY METHOD 06/27/2024 11:18 PM EDT [facility] MCV 97.3 79.0 - 98.0 FL LAB HEMETOLOGY METHOD 06/27/2024 11:18 PM EDT [facility] MCH 31.3 27.0 - 32.0 pcg LAB HEMETOLOGY METHOD 06/27/2024 11:18 PM EDT [facility] MCHC 32.1 32.0 - 37.0 g/dL LAB HEMETOLOGY METHOD 06/27/2024 11:18 PM EDT [facility] RDW 12.9 11.0 - 15.0 % LAB HEMETOLOGY METHOD 06/27/2024 11:18 PM EDT [facility] Platelets 311 130 - 400 K/mcL LAB HEMETOLOGY METHOD 06/27/2024 11:18 PM EDT [facility] MPV 11.0 7.0 - 11.0 FL LAB HEMETOLOGY METHOD 06/27/2024 11:18 PM [facility] NRBC 0.0 <1.0 % LAB HEMETOLOGY METHOD 06/27/2024 11:18 PM [facility] NRBC Absolute 0.00 <0.10 K/mcL LAB HEMETOLOGY METHOD 06/27/2024 11:18 PM [facility] Neutrophils Relative 73.7 % LAB HEMETOLOGY METHOD 06/27/2024 11:18 PM [facility] Lymphocytes Relative 19.1 % LAB HEMETOLOGY METHOD 06/27/2024 11:18 PM [facility] Monocytes Relative 5.7 % LAB HEMETOLOGY METHOD 06/27/2024 11:18 PM [facility] Eosinophils Relative 0.4 % LAB HEMETOLOGY METHOD 06/27/2024 11:18 PM [facility] Basophils Relative 0.3 % LAB HEMETOLOGY METHOD 06/27/2024 11:18 PM [facility] Immature Granulocytes Relative 0.8 % LAB HEMETOLOGY METHOD 06/27/2024 11:18 PM [facility] Neutrophils Absolute 10.73(H) 1.50 - 7.00 K/mcL LAB HEMETOLOGY METHOD 06/27/2024 11:18 PM [facility] Lymphocytes Absolute 2.77 1.00 - 5.00 K/mcL LAB HEMETOLOGY METHOD 06/27/2024 11:18 PM [facility] Monocytes Absolute 0.83 0.20 - 1.00 K/mcL LAB HEMETOLOGY METHOD 06/27/2024 11:18 PM [facility] Eosinophils Absolute 0.06 0.00 - 0.50 K/mcL LAB HEMETOLOGY METHOD 06/27/2024 11:18 PM [facility] Basophils Absolute 0.04 0.00 - 0.20 K/mcL LAB HEMETOLOGY METHOD 06/27/2024 11:18 PM EDT [facility] Immature Granulocytes Absolute 0.11(H) 0.00 - 0.03 K/mcL LAB HEMETOLOGY METHOD 06/27/2024 11:18 PM EDT [facility] Blood Venous blood specimen / Unknown Venipuncture / Unknown 06/27/2024 10:55 PM EDT 06/27/2024 11:03 PM EDT us Deni Dawn DO LAB BLOOD ORDERABLES Final Result [facility] [address] [place] [address], [place] [phone] * (ABNORMAL) Magnesium (06/27/2024 10:55 PM EDT) Magnesium 1.8(L) 1.9 - 2.6 mg/dL LAB CHEMISTRY METHOD 06/27/2024 11:41 PM EDT [facility] Blood Venous blood specimen / Unknown Venipuncture / Unknown 06/27/2024 10:55 PM EDT 06/27/2024 11:03 PM EDT us Deni Dawn DO LAB BLOOD ORDERABLES Final Result [facility] [address] [place] [address], [place] [phone] * Lipase (06/27/2024 10:55 PM EDT) Lipase 58 13 - 75 unit/L LAB CHEMISTRY METHOD 06/27/2024 11:41 PM EDT [facility] Blood Venous blood specimen / Unknown Venipuncture / Unknown 06/27/2024 10:55 PM EDT 06/27/2024 11:03 PM EDT us Deni Roche Cauchon DO LAB BLOOD ORDERABLES Final Result [facility] [address] [place] [address], * (ABNORMAL) Comprehensive metabolic panel (06/27/2024 10:55 PM EDT) Sodium 140 133 - 145 mmol/L LAB CHEMISTRY METHOD 06/27/2024 11:41 PM [facility] Potassium 3.6 3.5 - 5.5 mmol/L LAB CHEMISTRY METHOD 06/27/2024 11:41 PM [facility] Chloride 107 96 - 110 mmol/L LAB CHEMISTRY METHOD 06/27/2024 11:41 PM [facility] CO2 28 21 - 32 mmol/L LAB CHEMISTRY METHOD 06/27/2024 11:41 PM [facility] Anion Gap 5 3 - 11 LAB CHEMISTRY METHOD 06/27/2024 11:41 PM [facility] Glucose 122(H) 70 - 100 mg/dL LAB CHEMISTRY METHOD 06/27/2024 11:41 PM [facility] BUN 19 5 - 25 mg/dL LAB CHEMISTRY METHOD 06/27/2024 11:41 PM [facility] Creatinine 0.91 0.50 - 1.10 mg/dL LAB CHEMISTRY METHOD 06/27/2024 11:41 PM [facility] eGFR 78 >=60 mL/min/1. 73m2 LAB CHEMISTRY METHOD 06/27/2024 11:41 PM [facility] Comment:Calculation based on the Chronic Kidney Disease Epidemiology Collaboration (CKD-EPI) equation refit without adjustment for race. BUN/Creatinine Ratio 20.9 LAB CHEMISTRY METHOD 06/27/2024 11:41 PM [facility] Calcium 8.8 8.5 - 10.5 mg/dL LAB CHEMISTRY METHOD 06/27/2024 11:41 PM EDT [facility] AST (SGOT) 11 10 - 42 unit/L LAB CHEMISTRY METHOD 06/27/2024 11:41 PM EDT [facility] ALT (SGPT) 18 10 - 60 unit/L LAB CHEMISTRY METHOD 06/27/2024 11:41 PM EDT [facility] Alkaline Phosphatase 79 42 - 121 unit/L LAB CHEMISTRY METHOD 06/27/2024 11:41 PM EDT [facility] Total Protein 7.7 6.0 - 8.0 g/dL LAB CHEMISTRY METHOD 06/27/2024 11:41 PM EDT [facility] Albumin 3.6 3.2 - 5.0 g/dL LAB CHEMISTRY METHOD 06/27/2024 11:41 PM EDT [facility] Total Bilirubin 0.3 0.0 - 1.4 mg/dL LAB CHEMISTRY METHOD 06/27/2024 11:41 PM EDT [facility] Blood Venous blood specimen / Unknown Venipuncture / Unknown 06/27/2024 10:55 PM EDT 06/27/2024 11:03 PM EDT Deni Dawn DO LAB BLOOD ORDERABLES Final Result [facility] [address] [place] [address], from Last 3 Months Insurance MEDICAID - [place] Care Teams Mild Disabilities Teacher Relationship Specialty Start Date End Date Rosy Ayala MD [id number] [facility] [address] [place] [address] PCP - General 02/12/10
--- OUTSIDE RECORDS SUMMARY | 2024-08-15 14:26 | XMS_ITS ---
Author Organization [facility] Address [address] [address] Care Team Providers Care Medical Economics Consultant Name Role Phone Ana Lilia Mckee MARKETING CAMPAIGN ANALYST-C Primary Care Provider [phone] SA[facility] Program Status:Enrolled (Active) Start date:12/09/2023 Enrollment date:12/09/2023 Enrollment reason:Referred by provider Case Team Name Relationship Phone Darell Mace PharmD(Responsible Staff) [phone] Continued Care and Services Coordination
== END 2024-08-15 14:49 | disposition home or self-care (01) ==
LOC: HO.PMC 13:38
PROVIDERS: Visit Provider Registered Nurse Emergency
DX: M17.12 Unilateral primary osteoarthritis, left knee (principal); M25.562 Pain in left knee; G89.29 Other chronic pain; M53.3 Sacrococcygeal disorders, not elsewhere classified
CPT/HCPCS: 99213

== ENCOUNTER → 2024-08-15 13:37 | Outpatient (BNVA) | payer MEDICAID, SELFPAY | PROVIDERS: Visit Provider Registered Nurse Emergency | DX: M25.562 Pain in left knee (principal); M17.12 Unilateral primary osteoarthritis, left knee; M53.3 Sacrococcygeal disorders, not elsewhere classified | CPT/HCPCS: 99212 ==

== ENCOUNTER 2024-12-21 09:40 | Outpatient (AMB) | payer MEDICAID, SELFPAY ==
[2024-12-21 09:52] VITALS: BP 154/86; PULSE 85; RESP 16; O2SAT 97; BMI 37.4
--- NOTE | 2024-12-21 09:52 | MHC.OFFVIS ---
Vital Signs 12/21/24 09:52 Height 5 ft 3 in Weight 211 lb BMI 37.4 BP 154/86 H Blood Pressure Location Rt brachial Position Sitting Respiration 16 Pulse 85 Pulse Source Pulse Oximeter Pulse Oximetry (%) 97 Oxygen Delivery Method Room Air Intake Visit Reasons: FOLLOW UP AFTER SNB Choir Teacher Required: Yes Accompanied by: Self / Same As Patient Allergies ibuprofen Allergy (Severe, Verified 12/21/24 09:53) trouble breathing HPI Comments Details: The patient is a 49-year-old female presenting for pain management follow-up after a diagnostic saphenous nerve block procedure. She reports no pain since the nerve block was administered. The patient was advised to return if the pain recurs, and not to wait until it becomes severe. 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 Answers questions appropriately. Fully engaged in examination. Skin: warm, dry, intact HEENT: Normocephalic. Hearing intact. Cardiac: External chest normal in appearance. Respiratory: No cough, audible wheezing or stridor. Abdomen: without gross distension. MS: No obvious swelling or deformities. Neurological: Oriented to person, place, time and situation. Thought process intact. No gait abnormalities appreciated. Psychiatric: Appropriate mood and affect. Good judgment and insight. Vital Signs: Last Vital Signs Pulse 85 12/21/24 09:52 Resp 16 12/21/24 09:52 BP 154/86 H 12/21/24 09:52 Pulse Ox 97 12/21/24 09:52 Oxygen Delivery Method Room Air 12/21/24 09:52 BMI result Body Mass Index 37.4 Results Reviewed Results Reviewed: 09/12/2023 MR/MR knee LT wo con FINDINGS: MENISCI: Medial Meniscus: There is a small horizontal inner margin tear of the posterior horn, involving the inner third of the meniscal cross-section. No additional tears. No meniscal extrusion. Lateral Meniscus: Intact. LIGAMENTS: Cruciate: Intact. Collateral: Intact. EXTENSOR MECHANISM: Intact. ARTICULAR CARTILAGE/BONE: Patellofemoral Compartment: Diffuse full-thickness articular cartilage loss is evident at the lateral patellar facet extending onto the median ridge with associated articular cortical remodeling, sclerosis, and marginal osteophytes. Similar full-thickness cartilage loss and cortical remodeling are noted at the lateral trochlear facet. More [id number] chondral thinning and surface irregularity at the medial facets. A chronic ossific fragment is present at the lateral margin of the patella, likely a fragmented osteophyte. Medial Compartment: Npyw-am-iymoicog nonuniform chondral thinning at the medial femoral condyle and medial tibial plateau with associated marginal osteophytes. Lateral Compartment: There is mild nonuniform chondral thinning at the lateral tibial plateau with moderate-sized marginal osteophytes. JOINT FLUID AND BURSAE: Moderate-sized joint effusion. Small Sosa's cysts. No loose bodies. IMPRESSION: 1. Small horizontal inner margin tear at the posterior horn of the medial meniscus. 2. Severe patellofemoral compartment osteoarthritis more pronounced at the lateral facets. More vvkj-bt-fyngznad medial and lateral compartment osteoarthritis. 3. Moderate-sized joint effusion and a small Sosa's cyst. 07/20/23 XR/XR knee LT 3V FINDINGS: The bones are diffusely demineralized. AP Standing View of the Right Knee: Moderate degenerative changes in the medial compartment of the right knee with medial joint space narrowing and medial marginal osteophytes. Left Knee: Small tricompartmental osteophytes. Moderate joint effusion. Moderate narrowing of the medial compartment. Asymmetric lateral narrowing of the patellofemoral compartment. Corticated ossicles along the superolateral aspect of the patellofemoral joint. IMPRESSION: Moderate degenerative changes bilateral knees. Assessment & Plan Assessment & Plan (1) Patellofemoral arthritis of left knee: Code(s): M17.12 - Unilateral primary osteoarthritis, left knee Category: Medical (2) Left knee pain: Code(s): M25.562 - Pain in left knee Category: Medical Qualifiers: Chronicity: chronic Qualified Code(s): M25.562 - Pain in left knee; G89.29 - Other chronic pain (3) Disorder of both sacroiliac joints: Code(s): M53.3 - Sacrococcygeal disorders, not elsewhere classified Category: Medical Plan The patient was advised to return for further evaluation if the pain recurs. It was emphasized not to wait until the pain becomes severe before seeking further treatment. Patient was informed and verbally consented to the use of an ambient scribe for clinic note documentation during this visit. Patient Instructions: - Return for evaluation if pain recurs. - Do not wait until pain becomes severe before seeking treatment. Coding Level of Care Code Est Pt Level 3 (47889) Complex EM visit Add On G2211 Diagnoses Patellofemoral arthritis of left knee M17.12 Chronic pain of left knee M25.562; G89.29 Chronicity: chronic Disorder of both sacroiliac joints M53.3
--- OUTSIDE RECORDS SUMMARY | 2024-12-21 10:46 | XMS_ITS | Encounter Summary ---
Author Organization [facility] Address [address] [place] [address] Care Team Providers Care Ambulance Officer Name Role Phone Ana Lilia Mckee TORCH BRAZER-C Primary Care Provider [phone] Reason for Visit * Reason Comments Dental Hygiene/ Preventive RECALL Encounter Details Date Type Department Care Team ([facility] st Contact Info) Description 09/01/2021 Dental Interim Note [facility] [address] [place] [phone] Kiki Martinez [address] [place] [address] Social History Tobacco Use Types Packs/Day Years [...] In the last 10 days, have april salvador been in contact with someone who was confirmed or suspected to have Coronavirus/COVID-19? No / Unsure 08/19/2021 2:32 PM EDT documented as of this encounter Plan of Treatment Scheduled Orders Name Type Priority Associated Diagnoses Order Schedule Full Full PROPHYLAXIS - ADULT Dental Procedures Routine 1 Occurrences starting 09/01/2021 Full Full NUTRITIONAL COUNSELING FOR CONTROL OF DENTAL DISEASE Dental Procedures Routine 1 Occurrences starting 09/01/2021 Full Full ORAL HYGIENE INSTRUCTIONS Dental Procedures Routine 1 Occurre nces starting 09/01/2021 CASE PRESENTATION, DETAILED AND EXTENSIVE [...] Total Score: 20 019 2:30 PM PDT PHQ-2 Depression Total Score: 0 10/02/19 20 10:50 AM PDT documented as of this encounter Care Teams Ambulance Officer Relationship Specialty Start Date End Date Ana Lilia Mckee FNP-C [address] [place] [address] PCP - General Internal Medicine 11/19/22 documented as of this encounter
--- OUTSIDE RECORDS SUMMARY | 2024-12-21 10:46 | XMS_ITS | Clinical Summary ---
Author Organization [facility] Address [address] [place] [address] Care Team Providers [employer] Counter Clerk Name Role Phone Ana Lilia Mckee AERIAL PLANTING AND CULTIVATION MANAGER-C Primary Care Provider [phone] Source Comments PLEASE NOTE, if this patient [...] Cough 09/14/2022 Medications loratadine (CLARITIN) 10 mg tabletIndication s:Seasonal allergies,Allerg y, initial encounter Take 1 Tablet by mouth once daily as needed for allergies 30 Tablet 2 3 Active busPIRone (BUSPAR) 10 mg tablet Take 10 mg by mouth 2 (two) times daily [id number] [place], [place] [phone] 180 Each Refills RemaininDays Supply: 90Sig: TAKE 1 TABLET BY MOUTH TWICE DAILYSource: Surescripts (Fill History, Ambulatory)Auth orized by: DARBY HOROWITZ 4 Active diclofenac sodium (VOLTAREN) 1 % gelIndications:P ain in left tibia,Acute traumatic internal derangement of left knee, initial encounter Apply 2 g topically 2 (two) times daily 100 g 2 4 Active fluticasone (FLONASE) 50 mcg/actuation nasal sprayIndications :Viral infection Place 1 [place] in both nostrils once daily 16 g 1 4 Active acetaminophen (TYLENOL) 325 mg tabletIndication s:Viral infection Take 2 Tablets by mouth every 6 (six) hours as needed for pain 60 Tablet 4 Active blood pressure monitorIndicatio ns:Essential hypertension,Cla ss 1 obesity due to excess calories with serious comorbidity and body mass index (BMI) of 32.0 to 32.9 in adult Dispense XL BP CUFF. Check BP daily as needed. Lifetime need. Dx I10.0 1 Kit 4 Active blood pressure test kit-largeIndicat ions:Essential hypertension SMBP Program - Car Throttle - Checking BP Daily (ID: [id number]) 1 Kit 4 Active losartan (COZAAR) 50 mg tabletIndication s:Essential hypertension Take 1 Tablet by mouth every morning. 90 Tablet 1 5 Active DULoxetine (CYMBALTA) [address] capsuleIndicatio ns:Chronic generalized pain disorder,Moderat e episode of recurrent major depressive disorder Take 1 Capsule by mouth once daily. 90 Capsule 5 Active bacitracin 500 unit/gram ointmentIndicati ons:Folliculitis Apply topically 2 (two) times daily. 15 g 5 Active QUEtiapine (SEROQUEL) 50 mg tablet Take 50 mg by mouth nightly at bedtime. 5 Active LORazepam (ATIVAN) 1 mg tabletIndication s:Anxiety Take 1 Tablet by mouth 2 (two) times daily as needed for anxiety. Max Daily Amount: 2 mg 20 Tablet 5 Active Active Problems Problem Noted Date Diagnosed Date Ductal carcinoma of left breast 10/04/2024 Overview (10/04/2024): 08/28/2024 LEFT breast invasive ductal carcinoma, grade 1, with cribriform features, ER-positive, WV-positive, HER2-equivocal Mother with breast cancer age 44, age 54. Aunt with breast cancer age 77, currently age 79. Cousin with colon cancer age 55, currently age 60 Follows [facility] on Plan for LEFT PARTIAL MASTECTOMY AND LEFT AXILLARY LYMPH NODE BIOPSY Plan to follow up with Radiation Oncology team after her surgery to discuss radiation treatment She would like genetic testing but is concerned about the possibility of insurance not covering the cost. She has been placed on a brief FMLA period for her surgery on 11/14/2024 Class 1 obesity due to exces s calories with serious comorbidity and body mass index (BMI) of 32.0 to 32.9 in adult 06/08/2023 Food insecurity 05/03/2023 Financial difficulties 05/03/2023 Anxiety and depression 06/24/2022 Essential hypertension 06/24/2022 Sleep disturbances 10/02/2019 Vitamin D deficiency 10/02/2019 Anal fissure 04/13/2017 Overview (04/13/2017): [facility] - saw on 08/23/16. Not interested in surgery. Use Nifedipine TID RTC in 6 weeks. Hemorrhoids 04/14/2015 Overview (08/02/2016): 07/29/16 [facility] ED for constipation and hemorrhoids. KUB shows constipation. Treated with Lactulose 10 mg/15 mL BID PRN constipation x 3 days, Anucort-Hc rectal suppository, Colace 100 mg BID, and Tramadol 50 mg q6h PRN pain #10. Acne vulgaris 06/19/2013 Allergy 06/19/2013 Constipation, chronic 03/26/2013 Overview (02/01/2014): 05/22/13: Brandt Jo MD [facility] did colonoscopy; Entire colon NORMAL 06/08/13: GI ([facility])saw her, said nothing is wrong, enc weight [...] 01/18/2018 06/24/2022 Overview (01/18/2018): U/s ordered by [facility] done on 01-17-18 showed no bulky exophytic fibroids identified. Recommend clinical correlation with surgical history and follow up. MRI of pelvis may be considered. Endometrial stripe WNL Right shoulder pain 04/14/2015 06/25/19 23 Status post hysteroscopy 09/27/2014 Overview (09/27/2014): Chloe done by Dr. De La Cruz; 09/23/14 Encounters Date Type Department Care Team Description 11/01/2024 Interim Notes [address] [phone] Lisa Balderrama 10/22/2024 3:40 PM EDT Office Visit [address] [phone] Lynda, DISHA Rivera Celestia 10/11/2024 Interim Notes [address] [phone] April Randall LPN 10/04/2024 3:00 PM EDT Office Visit [address] [phone] Ana Lilia Mckee, PATRICIO-Godwin Santos from Last 3 Months Immunizations Immunization Administration Dates Next Due HEP A-HEP B ([place]) 07/20/2018 PNEUMOCOCCAL CONJUGATE PCV 2 0 (Prevnar 20) 06/28/2023(Deferred: Patient Refused) PNEUMOCOCCAL POLYSACCHARIDE PPV23 (Pneumovax [...] e alcohol) Social Connections Answer Date Recorded How often do you feel lonely or isolated from th ose around you? 1 09/17/2024 Financial Resource Strain Answer Date R ecorded Hard to pay for: Food 2 09/17/2024 Stress Answer Date Recorded Do you feel these kinds of stress these days? 1 09/17/2024 Physical Activity Answer Date Recorded Physical Activity 0 09/30/2018 Food Insecurity Answer Date Recorded Hard to pay for: Food 2 09/17/2024 Transportation Needs Answer Date Record ed Hard to pay for: Transportation 2 09/17/2024 Housing Stability Answer Date Recorded What is your housing situation today? 2 09/17/2024 Safety and Environment Answer Date Indra rded How often does anyone, inclu ding family and friends, physically hurt you? 1 10/04/2024 Utilities Answer Date Recorded Hard to pay for: Utilities 2 09/17 Employment Answer Date Recorded Stress 0 04/27/2021 Comments No Sex and Gender Information Value Date Recorded Sex Assigned at Female 11/26/2016 6:36 AM PDT Legal Sex Female 11:36 AM PDT Gender Identity Female 11/26/2016 6:36 AM PDT Sexual Orientation Straight 03/12/2019 12 :41 PM PST Last Filed Vital Signs Vital Sign Reading Time Taken Comments Blood Pressure 144/88 10/22/2024 3:56 PM EDT Pulse 105 10/22/2024 3:56 PM EDT Temperature 36.6 C (97.9 F) 10/22/2024 3:56 PM EDT Respiratory Rate 16 10/22/2024 3:56 PM EDT Oxygen Saturation 99% 07/05/2024 10:01 AM EDT Inhaled Oxygen Concentration - - Weight 98.9 kg (218 lb) 10/22/2024 3:56 PM EDT Height 167.6 cm (5' 6 ) 10/04/2024 2:19 PM EDT Body Mass Index 35.19 10/04/2024 2:19 PM EDT Plan of Treatment Health Maintenance Due Date Last Done Comments Dental Prophy 1975 HPV Screening (self-collect) [address] Colonography 09/20/2020 Colonoscopy 09/20/2020 Colorectal Cancer Screening 09/20/2020 FIT/gFOBT 09/20/2020 Fecal DNA 09/20/2020 Flexible Sigmoidoscopy 09/20/2020 Breast Cancer Screening (Mammogram) 01/08/2023 07/09/2022, 07/20/2018, 12/23/2016 Tobacco Cessation Counseling (#1) 06/27/2024 06/28/2023, 06/08/2023, 06/24/2022, Additional history exists Depression Monitoring 10/05/2024 07/05/2024 , 06/28/2023, 02/25/2023, Additional history exists [id number] ( - season) 2024 Imm-Hepatitis B (2 of 3 - Hep B Twinrix 3-dose series) 01/04/2025 07/20/2018 Postponed from 08/17/2018 (Patient postponement) Imm-Pneumococcal (2 of 2 - PCV) 01/04/2025 07/20/2018 Postponed from 07/21/2019 (Patient postponement) Anxiety Screening 07/05/2025 07/05/2024 Pap Smear 07/08/2025 07/08/2022, 12/09/2014 (Managed by Outside Provider) Annual Wellness (Adult): Indicated (All Coverage) 10/04/2025 10/04/2024, 06/28/2023, 06/24/2022, Additional history exists Diabetes Screening 10/04/2025 10/04/2024, 0 10/04/2024, 06/27/2024, Additional history exists Lipid Screening 10/04/2025 10/04/2024, 05/02/2023, 04/15/2022, Additional history exists Relationship Safety Screening/Counseling 10/04/2025 10/04/2024, 05/03/2023, 04/14/2022, Additional history exists Cervical Cancer Screening 07/09/2027 Pap + HPV 07/09/2027 07/08/2022 Imm-DTaP/Tdap/Td (2 - Td or Tdap) 07/20/2028 07/20/2018 Imm-Influenza Discontinued 04/14/2015 Hepatitis C Screening Completed 06/25/2016 HIV Screening Completed 11/25/2023, 07/20/2018 Alcohol and Drug Screen Completed 10/05/19, 07/05/2024, 02/25/2023, Additional history exists Cervical Ablation/Cold-Knife Conization Discontinued Cervical Cryotherapy Discontinued Colposcopy Discontinued Excision/Leep Discontinued HPV Genotyping Discontinued Vaginal Pap Discontinued Vulvoscopy Discontinued Procedures Procedure Name Priority Date/Time Associated Diagnosis Comments OTHER ORDERS SCANNED DOCUMENT 11/16/2024 3:00 AM EDT OTHER ORDERS SCANNED DOCUMENT 10/29/2024 3:00 AM EDT OTHER ORDERS SCANNED DOCUMENT 10/22/2024 3:00 AM EDT QUANTIFERON-TB GOLD PLUS Routine 10/04/2024 3:03 PM EDT VITAMIN D, 1,25-DIHYDROXY Routine 10/04/2024 3:03 PM EDT Routine general medical examination at a health care facility IRON, TIBC, FERRITIN PANEL Routine 10/04/2024 3:03 PM EDT Routine general medical examination at a [facility] facility VITAMIN B12 & FOLATE Routine 10/04/2024 3:03 PM EDT Routine general medical examination at a [facility] care facility HEMOGLOBIN GLYCOSYLATED A1C Routine 10/04/2024 3:03 PM EDT Routine general medical examination at a [facility] care facility LIPID PANEL Routine 10/04/2024 3:03 PM EDT Routine general medical examination at a health care facility THYROID CASCADING REFLEX PANEL Routine 10/04/2024 3:03 PM EDT Routine general medical examination at a health care facility COMPREHENSIVE METABOLIC PANEL Routine 10/04/2024 3:03 PM EDT Routine general medical examination at a health care facility BLOOD COUNT COMPLETE AUTO&AUTO DIFRNTL WBC Routine 10/04/2024 3:03 PM EDT Routine general medical examination at a health care facility HIV 1/2 AG & AB W/RFLX (4TH GEN) Routine 11/25/2023 1:27 PM EDT Routine screening for STI (sexually transmitted infection) REFERRAL FOR MAMMOGRAM Routine 07/09/2022 3:00 AM [...] Recently Relevant to Health Maintenance Results * OTHER ORDERS SCANNED DOCUMENT (11/16/2024 3:00 AM EDT) Only the most recent of3 resultswithin the time period is included. 11/16/2024 3:00 AM EDT Ana Lilia Mckee AERIAL PLANTING AND CULTIVATION MANAGER-C SCAN OTHER ORDERS Final R esult * QUANTIFERON-TB GOLD PLUS Routine (10/04/2024 3:03 PM EDT) QUANTIFERON NEGATIVE NEGATIVE 10/07/2024 10:13 PM EDT [facility] NIL 0.03 IU/mL 10/07/2024 10:13 PM EDT [facility] MITOGEN-NIL >10.00 IU/mL 10/07/2024 10:13 PM EDT [facility] TB1-NIL 0.03 IU/mL 10/07/2024 10:13 PM EDT [facility] TB2-NIL 0.02 IU/mL 10/07/2024 10:13 PM EDT [facility] 10/04/2024 3:03 PM EDT 10/05/2024 9:38 AM EDT Narrative [facility] - 10/07/2024 10:26 PM EDT Negative test result. M. tuberculosis complex infection unlikely. . The Nil tube value reflects the background interferon gamma immune response of the patient's blood sample. This value has been subtracted from the patient's displayed TB and Mitogen results. . Lower than expected results with the Mitogen tube prevent false-negative Quantiferon readings by detecting a patient with a potential immune suppressive condition and/or suboptimal pre-analytical specimen handling. . The TB1 Antigen tube is coated with the M. tuberculosis-specific antigens designed to elicit responses from TB antigen primed CD4+ helper T-lymphocytes. . The TB2 Antigen tube is coated with the M. tuberculosis-specific antigens designed to elicit responses from TB antigen primed CD4+ helper and CD8+ cytotoxic T-lymphocytes. . For additional information, please refer to https://education.[employer]/faq/IMU383 (This link is being provided for informational/ educational purposes only.) . Roomjoselito Rafi FNP-C LAB - BLOOD DRAW Final Re sult Performing Organization Address [facility] de Phone Number [facility] [address] [address], [facility] [address] [address] * (ABNORMAL) IRON, TIBC, FERRITIN PANEL Routine (10/04/2024 3:03 PM EDT) [facility] IRON, TOTAL 52 40 - 190 mcg/dL 10/05/2024 8:51 AM EDT [facility] IRON BINDING CAPACITY 377 250 - 450 mcg/dL (calc) 10/05/2024 8:51 AM EDT [facility] % SATURATION 14(L) 16 - 45 % (calc) 10/05/2024 8:51 AM EDT [facility] FERRITIN 67 16 - 232 ng/mL 10/05/2024 5:53 AM EDT [facility] Blood Blood / Unknown 10/04/2024 3 :03 PM EDT 10/05/2024 4:41 AM EDT [facility] - BLOOD DRAW Final Re sult Performing Organization Address [facility] de Phone Number [facility] [address] [address], [employer] [address] [address] * VITAMIN D, 1,25-DIHYDROXY Routine (10/04/2024 3:03 PM EDT) VITAMIN D, 1, 25 (OH)2, TOTAL 37 18 - 72 pg/mL 10/08/2024 1:14 PM EDT [facility] VITAMIN D3, 1, 25 (OH)2 37 pg/mL 10/08/2024 1:14 PM EDT [facility] VITAMIN D2, 1, 25 (OH)2 <8 pg/mL 10/08/2024 1:14 PM EDT [facility] Blood Blood / Unknown 10/04/2024 3 :03 PM EDT 10/06/2024 8:20 PM EDT Narrative [facility] [place] - 10/08/2024 1:17 PM EDT . Vitamin D3, 1,25(OH)2 indicates both endogenous production and supplementation. Vitamin D2, 1,25(OH)2 is an indicator of exogenous sources, such as diet or supplementation. Interpretation and therapy are based on measurement of Vitamin D,1,25(OH)2, Total. . . This test was developed and its analytical performance characteristics have been determined by [facility], [place], [place]. It has not been cleared or approved by the FDA. This assay has been validated pursuant to the CLIA regulations and is used for clinical purposes. . Ana Lilia Mckee AERIAL PLANTING AND CULTIVATION MANAGER-C LAB - BLOOD DRAW Final Re sult [facility] [place] [address] [place], [place] , [facility] [address] [place], [place] * THYROID CASCADING REFLEX PANEL Routine (10/04/2024 3:03 PM EDT) Pathologist [facility] TSH 2.10 mIU/L 10/05/2024 5:53 AM EDT [facility] Blood Blood / Unknown 10/04/2024 3 :03 PM EDT 10/05/2024 4:41 AM EDT [employer] [facility] - 10/05/2024 6:01 AM EDT Reference Range . > or = 20 Years 0.40-4.50 . Ranges First trimester 0.26-2.66 Second trimester 0.55-2.73 Third trimester 0.43-2.91 [facility]-C LAB - BLOOD DRAW Final Re sult Performing Organization Address [facility] de Phone Number [facility] [address] [address], [employer] [address] [address] * VITAMIN B12 & FOLATE Routine (10/04/2024 3:03 PM EDT) [facility] VITAMIN B12 421 200 - 1,100 pg/mL 10/05/2024 5:54 AM EDT [facility] FOLATE, SERUM 15.9 ng/mL 10/05/2024 5:54 AM EDT [facility] Blood Blood / Unknown 10/04/2024 3 :03 PM EDT 10/05/2024 4:41 AM EDT [employer] [facility] - 10/05/2024 6:01 AM EDT Reference Range Low: <3.4 Borderline: 3.4-5.4 Normal: >5.4 . [facility] - BLOOD DRAW Final Re sult Performing Organization Address [facility] de Phone Number [facility] [address] [address], [employer] [address] [address] * (ABNORMAL) BLOOD COUNT COMPLETE AUTO&AUTO DIFRNTL WBC Routine (10/04/2024 3:03 PM EDT) [facility] WHITE BLOOD CELL COUNT 12.0(H) 3.8 - 10.8 Thousand/ uL 10/05/2024 4:37 AM EDT [facility] RED BLOOD CELL COUNT 4.43 3.80 - 5.10 Million/u L 10/05/2024 4:37 AM [facility] HEMOGLOBIN 13.7 11.7 - 15.5 g/dL 10/05/2024 4:37 AM [facility] HEMATOCRIT 43.0 35.0 - 45.0 % 10/05/2024 4:37 AM [facility] MCV 97.1 80.0 - 100.0 fL 10/05/2024 4:37 AM [facility] MCH 30.9 27.0 - 33.0 pg 10/05/2024 4:37 AM [facility] MCHC 31.9(L) 32.0 - 36.0 g/dL 10/05/2024 4:37 AM [facility] RDW 11.9 11.0 - 15.0 % 10/05/2024 4:37 AM [facility] PLATELET COUNT 288 140 - 400 Thousand/ uL 10/05/2024 4:37 AM [facility] MPV 11.6 7.5 - 12.5 fL 10/05/2024 4:37 AM [facility] ABSOLUTE NEUTROPHILS 8,376(H) 1,500 - 7,800 cells/uL 10/05/2024 4:37 AM [facility] ABSOLUTE LYMPHOCYTES 2,868 850 - 3,900 cells/uL 10/05/2024 4:37 AM [facility] ABSOLUTE MONOCYTES 624 200 - 950 cells/uL 10/05/2024 4:37 AM [facility] ABSOLUTE EOSINOPHILS 84 15 - 500 cells/uL 10/05/2024 4:37 AM [facility] ABSOLUTE BASOPHILS 48 0 - 200 cells/uL 10/05/2024 4:37 AM [facility] NEUTROPHILS PCT 69.8 % 4:37 AM [facility] LYMPHOCYTES 23.9 % 10/05/2024 4:37 AM [facility] MONOCYTES 5.2 % 10/05/2024 4:37 AM [facility] EOSINOPHILS 0.7 % 10/05/2024 4:37 AM [facility] BASOPHILS 0.4 % 10/05/2024 4:37 AM [facility] Blood Blood / Unknown 10/04/2024 3 :03 PM EDT 10/05/2024 4:18 AM EDT Narr[employer] - 10/05/2024 4:41 AM EDT For adults, a slight decrease in the calculated MCHC value (in the range of 30 to 32 g/dL) is most likely not clinically significant; however, it should be interpreted with caution in correlation with other red cell parameters and the patient's clinical condition. [employer] AERIAL PLANTING AND CULTIVATION MANAGER-C LAB - BLOOD DRAW Final Re sult Performing Organization Address [facility] de Phone Number [facility] [address] [address], [employer] [place] [employer] [address] [place] [phone] * HEMOGLOBIN GLYCOSYLATED A1C Routine (10/04/2024 3:03 PM EDT) [facility] Signature HEMOGLOBIN A1C 4.9 <5.7 % 10/05/2024 5:52 AM EDT [employer] Blood Blood / Unknown 10/04/2024 3 :03 PM EDT 10/05/2024 4:18 AM EDT Narr[employer] [facility] - 10/05/2024 6:01 AM EDT For the purpose of screening for the presence of diabetes: . <5.7% Consistent with the absence of diabetes 5.7-6.4% Consistent with increased risk for diabetes (prediabetes) > or =6.5% Consistent with diabetes . This assay result is consistent with a decreased risk of diabetes. . Currently, no consensus exists regarding use of hemoglobin A1c for diagnosis of diabetes in children. . According to [place] Diabetes Association (ADA) guidelines, hemoglobin A1c <7.0% represents optimal control in non- diabetic patients. Different metrics may apply to specific patient populations. Standards of Medical Care in Diabetes(ADA). . [employer] AERIAL PLANTING AND CULTIVATION MANAGER-C LAB - BLOOD DRAW Final Re sult Performing Organization Address [facility] de Phone Number [facility] [address] [place] [id number], [employer] [address] [place] [phone] * (ABNORMAL) LIPID PANEL Routine (10/04/2024 3:03 PM EDT) CHOLESTEROL, TOTAL 169 <200 mg/dL 10/05/2024 8:51 AM EDT [facility] HDL CHOLESTEROL 53 > OR = 50 mg/dL 10/05/2024 8:51 AM EDT [facility] TRIGLYCERIDES 153(H) <150 mg/dL 10/05/2024 8:51 AM EDT [facility] LDL-CHOLESTEROL 91 mg/dL (calc) 10/05/2024 8:51 AM EDT [facility] CHOL/HDLC RATIO 3.2 <5.0 (calc) 10/05/2024 8:51 AM EDT [facility] NON-HDL CHOLESTEROL 116 <130 mg/dL (calc) 10/05/2024 8:51 AM EDT [facility] Blood Blood / Unknown 10/04/2024 3 :03 PM EDT 10/05/2024 4:41 AM EDT Narrative [facility] - 10/05/2024 9:03 AM EDT Reference range: <100 . Desirable range <100 mg/dL for primary prevention; <70 mg/dL for patients with CHD or diabetic patients with > or = 2 CHD risk factors. . LDL-C is now calculated using the Kiran-Alyssa calculation, which is a validated novel method providing better accuracy than the Friedewald equation in the estimation of LDL-C. Kiran SS et al. MURIEL. 2013;310(19): 7138-7055 (http://education.[employer].com/faq/ENX166) For patients with diabetes plus 1 major ASCVD risk factor, treating to a non-HDL-C goal of <100 mg/dL (LDL-C of <70 mg/dL) is considered a therapeutic option. us Ana Lilia Mckee AERIAL PLANTING AND CULTIVATION MANAGER-C LAB - BLOOD DRAW Final Re sult [facility] [address] [address], [facility] [address] [phone] * COMPREHENSIVE METABOLIC PANEL Routine (10/04/2024 3:03 PM EDT) [facility] GLUCOSE 90 65 - 99 mg/dL 10/05/2024 8:51 AM [facility] UREA NITROGEN (BUN) 16 7 - 25 mg/dL 10/05/2024 8:51 AM [facility] CREATININE (blood) 0.78 0.50 - 0.99 mg/dL 10/05/2024 8:51 AM [facility] EGFR 93 > OR = 60 mL/min/1. 73m2 10/05/2024 8:51 AM [facility] BUN/CREATININE RATIO SEE NOTE: 6 - 22 (calc) 10/05/2024 8:51 AM [facility] SODIUM 140 135 - 146 mmol/L 10/05/2024 8:51 AM [facility] POTASSIUM 3.7 3.5 - 5.3 mmol/L 10/05/2024 8:51 AM [facility] CHLORIDE 106 98 - 110 mmol/L 10/05/2024 8:51 AM [facility] CARBON DIOXIDE 27 20 - 32 mmol/L 10/05/2024 8:51 AM [facility] CALCIUM 9.1 8.6 - 10.2 mg/dL 10/05/2024 8:51 AM [facility] PROTEIN, TOTAL 7.6 6.1 - 8.1 g/dL 10/05/2024 8:51 AM [facility] ALBUMIN 4.3 3.6 - 5.1 g/dL 10/05/2024 8:51 AM [facility] GLOBULIN 3.3 1.9 - 3.7 g/dL (calc) 10/05/2024 8:51 AM [facility] ALBUMIN/GLOBULI N RATIO 1.3 1.0 - 2.5 (calc) 10/05/2024 8:51 AM [facility] BILIRUBIN, TOTAL 0.3 0.2 - 1.2 mg/dL 10/05/2024 8:51 AM [facility] ALKALINE PHOSPHATASE 60 31 - 125 U/L 10/05/2024 8:51 AM [facility] AST 12 10 - 35 U/L 10/05/2024 8:51 AM EDT [facility] ALT 14 6 - 29 U/L 10/05/2024 8:51 AM EDT [facility] Blood Blood / Unknown 10/04/2024 3 :03 PM EDT 10/05/2024 4:41 AM EDT Narrative [facility] - 10/05/2024 9:03 AM EDT . Fasting reference interval . Not Reported: BUN and Creatinine are within reference range. . Ana Lilia Mckee AERIAL PLANTING AND CULTIVATION MANAGER-C LAB - BLOOD DRAW Final Re sult Performing Organization Address [facility] de Phone Number [facility] [address] [address], [facility] [address] [address] * HIV 1/2 AG & AB W/RFLX (4TH GEN) (11/25/2023 1:27 PM EDT) [facility] HIV AG/AB, 4TH GEN NON-REAC TIVE NON-REAC TIVE [facility] Comment: HIV-1 antigen and HIV-1/HIV-2 antibodies were not detected. There is no laboratory evidence of HIV infection. PLEASE NOTE: This information has been disclosed to you from records whose confidentiality may be protected by state law. If your state requires such protection, then the state law prohibits you from making any further disclosure of the information without the specific written consent of the person to whom it pertains, or as otherwise permitted by law. A general authorization for the release of medical or other information is NOT sufficient for this purpose. For additional information please refer to http://education.Simple.Chict[employer]/faq/ZVF508 (This link is being provided for informational/ educational purposes only.) The performance of this assay has not been clinically validated in patients less than 2 years old. Blood Blood / Unknown 11/25/2023 1 :27 PM EDT 11/25/2023 1:27 PM EDT Terrencealvaro DouglassRafi AERIAL PLANTING AND CULTIVATION MANAGER-C LAB - BLOOD DRAW Final Re sult Performing Organization Address City/[facility]/ZIP Co de Phone Number [employer] [address] [place] [phone], [facility] [place] [facility] [address] [place] [phone] * (ABNORMAL) REFERRAL FOR MAMMOGRAM SCREENING (07/09/2022 3:00 AM EDT) 07/09/2022 3:00 AM EDT Alberta Pandey AERIAL PLANTING AND CULTIVATION MANAGER-C IMG RFL MAMMO Edited R esult - Final * THIN PREP PAP + HPV RNA E6/E7 (Q) (07/08/2022 3:38 PM EDT) CLINICAL INFORMATION See Note [facility] Comment:NO PAP SMEAR WITHIN 7 YEARS LMP See Note [employer] Comment:[id number] PREV. PAP See Note [employer] Comment:NONE GIVEN PREV. BX See Note [employer] Comment:NONE GIVEN SOURCE See Note [employer] Comment:Cervix STATEMENT OF ADEQUACY See Note [employer] Comment: Satisfactory for evaluation. Endocervical/transformation zone component present. INTERPRETATION/RESU LT See Note [employer] Comment:Negative for intraep ithelial lesion or malignancy. INFECTION See Note [facility] Comment: Shift in vaginal lisette suggestive of bacterial vaginosis. HOST/HOSTESS See Note [employer] Comment: DCR, CT(ASCP) CT screening location: [address] [address] COMMENT [facility] HPV MRNA E6/E7 Not Detected Not Detected [facility] Comment: Methodology: Quality Control Lead-Mediated Amplification This assay detects E6/E7 viral messenger RNA (mRNA) from 14 high-risk HPV types (16,18,31,33,35,39,45,51,52,56,58,59,66,68). Cervical sources are required for HPV testing. If a vaginal source from a patient who has had a total hysterectomy with removal of cervix was submitted, please contact the testing laboratory for alternative testing options. For additional information, please refer to http://education.[employer]/faq/ZGJ911a3 (This link if provided for information/ educational purposes only.) CYTOLOGY Cervix uteri structure / Unknown 07/08/2022 3:38 PM EDT 07/09/2022 5:55 AM EDT Narrative [facility] - 07/13/2022 10:23 AM EDT EXPLANATORY NOTE: [...] clinical information. Anthony Avalos MD LAB - PATHOLOGY AND CYTOLOGY AM BULATORY Final Result Performing Organization Address City/State/[facility] Co de Phone Number [facility] [address] [place] [phone], [facility] [address] [phone] * HEPATITIS A,B,C PANEL (06/25/2016 10:52 AM EDT) HEPATITIS B SURFACE ANTIBODY NEGATIVE NEGATIVE [facility] HEPATITIS B SURFACE ANTIGEN NEGATIVE NEGATIVE [facility] Comment: Over the counter supplements containing high doses of biotin may interfere with this assay. If interference is suspected, patients shoud be retested after refraining from biotin supplements for 72 hours. HEPATITIS C VIRUS DIAGNOSTIC NEGATIVE NEGATIVE [facility] HEPATITIS B CORE ANTIBODY NEGATIVE NEGATIVE [facility] HEPATITIS A ANTIBODY TOTAL NEGATIVE NEGATIVE [facility] Comment: Over the counter supplements containing high doses of biotin may interfere with this assay. If interference is suspected, patients shoud be retested after refraining from biotin supplements for 72 hours. Blood specimen (specimen) Blood / Unknown 06/25/2016 10:52 AM EDT 06/25/2016 11:14 AM EDT Narrative [facility] - 06/25/2016 4:05 PM EDT [facility] [address] [place] [address] [place] [id number] ORD# [id number] Karie Franco MD LAB - BLOOD DRA Kline Edited Result - Final [facility] [address] [place] [address], from Last 3 Months or Most Recently Relevant to Health Maintenance Insurance HE[employer]Y NET DENTAL CT MEDICAID DENTAL COMMUNITY [facility] Care Teams Betting Agency 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
--- OUTSIDE RECORDS SUMMARY | 2024-12-21 10:46 | XMS_ITS ---
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
--- OUTSIDE RECORDS SUMMARY | 2024-12-21 10:46 | XMS_ITS | Clinical Summary ---
Author Organization [employer] Address [address] [facility] [address] [place] [address] Care Team Providers Care Face Painter Name Role Phone Unavailable Primary Care Provider Unavailabl e Social History Tobacco Use Types Packs/Day Years Used Date Smoking Tobacco: Never Assessed Comments Unknown Sex and Gender Information Value Date Recorded Sex Assigned at Not on file Legal Sex Female 9:32 PM EDT Gender Identity Not on file Sexual Orientation Not on file Plan of Treatment Health Maintenance Due Date Last Done Comments CT Colonography 1975 Colonoscopy 1975 Colorectal Cancer Screening 1975 Depression Screening 1975 FIT DNA/Cologuard 1975 FIT 1975 FOBT 1975 Lipid Panel 1975 SDOH Screening 1975 Sigmoidoscopy 1975 Disability Screening 1975 Alcohol/Substance Use Screening 1987 Tobacco Screening 1987 Family Planning (PISQ) 09/20/1990 Hepatitis C Screening 09/20/1993 Pap Smear 09/20/1996 Cervical Cancer Screening 09/20/2005 HPV/Cotest 09/20/2005 Hepatitis B Vaccines (2 of 3 - Hep B Twinrix 3-dose series) 08/17/2018 07/20/2018 COVID-19 Vaccine (1 - 2024-2 6 season) 2024 Influenza Vaccine (#1) 2024 Zoster Vaccines (1 of 2) 09/20/2025 DTaP/Tdap/Td Vaccines (2 - T d or Tdap) 07/20/2028 07/20/2018 RSV Patients and Pa tients Aged 60 years or older (1 - 1-dose 75+ series) 09/20/2050 Hepatitis A Vaccines Aged Out 07/20/2018 No long er eligible based on patient's age to complete this topic Pneumococcal Vaccine: Pediat rics (0 to 5 Years) and At-Risk Patients (6 to 49) Years Aged Out 07/20/2018 No longer eligi ble based on patient's age to complete this topic HIV Screening Completed 11/25/2023 HIB Vaccines Aged Out No longer eligi [...] patient's age to complete this topic Meningococcal Vaccine Aged Out No kim leonor eligible based on patient's age to complete this topic RSV under 20 months Aged Out No longe r eligible based on patient's age to complete this topic Rotavirus Vaccines Aged Out No longer eligible based on patient's age to complete this topic
--- OUTSIDE RECORDS SUMMARY | 2024-12-21 10:46 | XMS_ITS | Clinical Summary ---
Author Organization [facility] Address [address] [place] [address] Phone Care Team Providers Care Independent Insurance Adjuster Name Role Phone Ana Lilia Mckee EMT INTERMEDIATE Primary Care Provider Allergies Active Allergy Reactions Criticality Noted Date Comments Ibuprofen Shortness of breath High 06/08/2023 Dyspnea, no anaphylaxis per patient Lisinopril Cough 09/13/2022 Medications busPIRone (BUSPAR) 10 mg tablet Take 1 tablet (10 mg total) by mouth 2 (two) times a day. Active QUEtiapine (SEROquel) 25 mg tablet Take 1 tablet (25 mg total) by mouth at bedtime. 5 Active losartan (COZAAR) 50 mg tablet Take 1 tablet (50 mg total) by mouth 1 (one) time each day in the morning. 5 Active acetaminophen (TYLENOL) 500 mg tablet Take 2 tablets (1,000 mg total) by mouth every 8 (eight) hours. 30 tablet 5 Active escitalopram (LEXAPRO) 5 mg tablet Take 1 tablet (5 mg total) by mouth 1 (one) time each day. 4 Active fluticasone propionate (FLONASE) 50 mcg/actuation nasal spray Administer 1 spray into affected nostril(s) daily. 4 Active loratadine (CLARITIN) 10 mg tablet Take 1 tablet (10 mg total) by mouth once daily as needed. 3 Active traZODone (DESYREL) 100 mg tablet Take 1 tablet (100 mg total) by mouth at bedtime. 4 Active diclofenac (VOLTAREN) 1 % topical gel Apply 2 g topically 2 (two) times a day. Active bacitracin 500 unit/gram ointment Apply 1 Application topically 2 (two) times a day. Active DULoxetine (CYMBALTA) [address] capsule Take 1 capsule (20 mg total) by mouth 1 (one) time each day. Do not crush or chew. Active Active Problems No known active problems Resolved Problems Problem Noted Date Diagnosed Date Resolved Date Acute cholecystitis 06/27/2024 06/29/19 25 Encounters Date Type Department Care Team Description 10/19/2024 Telephone Gastroenterology [facility] [address] [phone] Mario Ojeda MD 10/05/2024 Telephone Gastroenterology [facility] 175 [facility] [address] [address] Mario Ojeda MD from Last 3 Months Surgical History Surgery [...] 07/10/2024 3:12 PM EDT Plan of Treatment Upcoming Encounters Date Type Department Care Team (Late st Contact Info) Description 01/14/2025 11:00 AM EST Appointment [facility] Endoscopy [address] [facility] [place] [id number] Noe Rojas DO [address] [facility] [address] [place] [address] Health Maintenance Due Date Last Done Comments Breast Cancer Screening 1975 Colorectal Cancer Screening: Colonoscopy 1975 COVID-19 Vaccine (#1) 09/20/1980 Cervical Cancer Screening: Pap Smear 09/20/1996 Hepatitis B Vaccines (2 of 3 - Hep B Twinrix 3-dose series) 08/17/2018 07/20/2018 Pneumococcal Vaccine: Pediatrics (0 to 5 Years) and At-Risk Patients (6 to 49 Years) (2 of 2 - PCV) 07/21/2019 07/20/2018 HIV Screening 01/16/2022 Hepatitis C Screening 01/16/2022 Social Influencers of Health Screening 01/16/2022 Depression Screening 02/08/2024 Influenza Vaccine (#1) 2024 Hypertension/CHF/CAD Annual BMP Blood Test 10/04/2025 10/04/2024, 06/27/2024, 11/25/2023 DTaP,Tdap,and Td Vaccines (2 - Td or Tdap) 07/20/2028 07/20/2018 Cholesterol Screening (Lipid Panel) 10/04/2029 10/04/2024, 10/04/2024, 06/28/2023, Additional history exists RSV Immunization Adult Patients (1 - 1-dose 75+ series) 09/20/2050 Hepatitis [...] on patient's age to complete this topic Goals Goal Patient Goal Type Associated Problems Recent Progress Patient-Stated? Author Autogenera sheng Goal Care Plan Autogenerated Problem No Rebeca Hubbard Procedures Procedure Name Priority Date/Time Associated Diagnosis Comments COMPREHENSIVE METABOLIC PANEL STAT 06/27/2024 10:55 PM EDT from Last 3 Months or Most Recently Relevant to Health Maintenance Results * (ABNORMAL) Comprehensive metabolic panel (06/27/2024 10:55 PM EDT) Sodium 140 133 - 145 mmol/L LAB CHEMISTRY METHOD 06/27/2024 11:41 PM [facility] Potassium 3.6 3.5 - 5.5 mmol/L LAB CHEMISTRY METHOD 06/27/2024 11:41 PM [facility] Chloride 107 96 - 110 mmol/L LAB CHEMISTRY METHOD 06/27/2024 11:41 PM [facility] CO2 28 21 - 32 mmol/L LAB CHEMISTRY METHOD 06/27/2024 11:41 PM [facility] Anion Gap 5 3 - 11 LAB CHEMISTRY METHOD 06/27/2024 11:41 PM [facility] Glucose 122(H) 70 - 100 mg/dL LAB CHEMISTRY METHOD 06/27/2024 11:41 PM [facility] BUN 19 5 - 25 mg/dL LAB CHEMISTRY METHOD 06/27/2024 11:41 PM [facility] Creatinine 0.91 0.50 - 1.10 mg/dL LAB CHEMISTRY METHOD 06/27/2024 11:41 PM [facility] eGFR 78 >=60 mL/min/1. 73m2 LAB CHEMISTRY METHOD 06/27/2024 11:41 PM [facility] Comment:Calculation based on the Chronic Kidney Disease Epidemiology Collaboration (CKD-EPI) equation refit without adjustment for race. BUN/Creatinine Ratio 20.9 LAB CHEMISTRY METHOD 06/27/2024 11:41 PM [facility] Calcium 8.8 8.5 - 10.5 mg/dL LAB CHEMISTRY METHOD 06/27/2024 11:41 PM [facility] AST (SGOT) 11 10 - 42 unit/L LAB CHEMISTRY METHOD 06/27/2024 11:41 PM [facility] ALT (SGPT) 18 10 - 60 unit/L LAB CHEMISTRY METHOD 06/27/2024 11:41 PM [facility] Alkaline Phosphatase 79 42 - 121 unit/L LAB CHEMISTRY METHOD 06/27/2024 11:41 PM [facility] Total Protein 7.7 6.0 - 8.0 g/dL LAB CHEMISTRY METHOD 06/27/2024 11:41 PM [facility] Albumin 3.6 3.2 - 5.0 g/dL LAB CHEMISTRY METHOD 06/27/2024 11:41 PM [facility] Total Bilirubin 0.3 0.0 - 1.4 mg/dL LAB CHEMISTRY METHOD 06/27/2024 11:41 PM [facility] Blood Venous blood specimen / Unknown Venipuncture / Unknown 06/27/2024 10:55 PM EDT 06/27/2024 11:03 PM EDT Deni Dawn DO LAB BLOOD ORDERABLES Final Result [facility] [address] [place] [address], from Last 3 Months or Most Recently Relevant to Health Maintenance Additional Health Concerns Active Problems Noted Date Diagnosed Date Autogenerated Problem 11/07/2024 Insurance MEDICAID - [place] Care Teams Independent Insurance Adjuster Relationship Specialty Start Date End Date Ana Lilia Mckee FNP [address] [place] [phone] PCP - General Family Medicine 10/05/24
== END 2024-12-21 10:21 | disposition home or self-care (01) ==
LOC: HO.PMC 09:40
PROVIDERS: Visit Provider Registered Nurse Emergency
DX: M17.12 Unilateral primary osteoarthritis, left knee (principal); M25.562 Pain in left knee; G89.29 Other chronic pain; M53.3 Sacrococcygeal disorders, not elsewhere classified
CPT/HCPCS: 99213

== ENCOUNTER → 2024-12-21 09:40 | Outpatient (BNVA) | payer MEDICAID, SELFPAY | PROVIDERS: Visit Provider Registered Nurse Emergency | DX: M17.12 Unilateral primary osteoarthritis, left knee (principal); M25.562 Pain in left knee; G89.29 Other chronic pain; M53.3 Sacrococcygeal disorders, not elsewhere classified | CPT/HCPCS: 99212 ==